=== PATIENT | female | born 1985 | race American Indian/Alaskan Native ===

== ENCOUNTER 2017-01-13 01:09 | Inpatient (IN) | payer MEDICAID ==
[2017-01-13] MEDS ORDERED: POLYCILLIN/NS 2 GM/100 ML 2 GM/100 ML BAG IV ONE (01:41)
[2017-01-13] MEDS ORDERED: BRETHINE SUB-Q PRN (01:51)
[2017-01-13] MEDS ORDERED: ZOFRAN IV PRN (01:51)
[2017-01-13] MEDS ORDERED: ePHEDrine SULFATE IV PRN ×2 (01:51→05:51)
[2017-01-13] MEDS ORDERED: XYLOCAINE 2% INFILTRATI ONE (01:51)
[2017-01-13] MEDS ORDERED: MINERAL OIL PO PRN (01:51)
[2017-01-13] MEDS ORDERED: PITOCin/NS 20 UNIT/1000ML DRIP 20 UNITS/1,000 ML BAG IV SCH ×2 (02:00→18:31)
[2017-01-13] MEDS ORDERED: LACTATED RINGERS 1,000 ML IV SCH ×2 (02:00→17:00)
--- NOTE | 2017-01-13 02:00 | History and Physical Report ---
History of Present Illness Date of examination: 01/13/17 (pt presents with SROM) Chief complaint: leaking fluid History of present illness: EDC Confirmation: 01/18/2017 Gestational Age: 8 weeks Past History : 1 Past Medical History: Negative Past Medical History Past Surgical History: Negative Past Surgical History Past Medical History Surgery (Non-steel layer): Negative Past Surgical History Abnormal PAP: negative JENNIFER Exposure: negative Infertility: negative Uterine Anomaly: negative Uterine Surgery (not C/S): negative Other Gynecologic Problems: negative Medical History Comments: neg Family Hx: neg Social Hx: no e/t/d student-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 of genital herpes: no Rash, Viral, or Febrile illness since last LMP? no Varicella/Chicken Pox Status: Immunized Genetic History Congenital Heart Defect: Mom: no Alvaro Disease: Mom: no Thalassemia Mom: no Neural Tube Defect Mom: no Down's Syndrome Mom: no Jabier-Sachs Mom: no Sickle Cell Disease/Trait Mom: no Hemophilia Mom: no Muscular Dystrophy Mom: no Cystic Fibrosis Mom: no Yared Chorea Mom: no Mental Retardation Mom: no Fragile X Mom: no Other Genetic/Chromosomal Disorder Mom: no Child w/other defect Mom: no Enviromental Exposures Xray Exposure: no Medication, drug, or alcohol use since LMP: no Chemical/Other Exposure: no Exposure to Cat Liter: no Hx of Parvovirus (Fifth Disease): no Occupational Exposure to Children: none Active Medications (reviewed today): VITAMINS TABS ( VIT-FE FUMARATE-FA TABS) Current Allergies (reviewed today): No known allergies Laboratory Results Date/Time Collected: 06/08/2016 Urine HCG: positive PHYSICAL EXAM HEENT: PERRLA, normal conjunctiva, external nose and nasal mucosa normal, oropharynx clear Neck/Thyroid: supple, thyroid normal Skin no significant abnormal lesions or rashes Chest: respiratory effort normal, clear to auscultation Breasts: normal without skin changes or masses Abdomen: normal bowel sounds, soft, nontender, no HSM Musculoskeletal: grossly normal ROM in joints, no joint tenderness or muscle weakness Neuro: grossly normal DTRs, sensation, strength, cranial nerves Extremities: no clubbing, cyanosis, or edema 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 Vulva/Vagina: No lesions, normal BUS, normal rugae Cervix: No lesions; no cervical motion tenderness Uterus: normal size and position, midline, mobile Fundal Ht: 12 Adnexae: no masses or tenderness Rectovaginal: no masses or tenderness Flowsheet View for Follow-up Visit Past History - Obstetrical History Expected Date of Delivery: 01/18/17 Actual Gestation: 39 Week(s) 2 Day(s) : 1 Para: 0 Hx # Term Pregnancies: 0 Number of Pregnancies: 0 Spontaneous Abortions: 0 Induced : 0 Number of Living Children: 0 Medications and Allergies Allergies Allergy/AdvReac Type Severity Reaction Status Date / Time No Known Allergies Allergy Unverified 01/13/17 01:11 Home Medications Medication Instructions Recorded Confirmed Last Taken Type Vit No.130/Iron/Folic 1 each PO QDAY 01/13/17 01/13/17 01/12/17 History [ Tablet] Active Meds: Active Medications Ephedrine Sulfate (Ephedrine Sulfate) 10 mg IV Q2M PRN PRN Reason: Hypotension Fentanyl (Sublimaze) 100 mcg IV Q2H PRN PRN Reason: Labor Pain Ampicillin Sodium (Polycillin/Ns 2 Gm/100 Ml) 2 gm in 100 mls @ 100 mls/hr IV ONCE ONE PRN Reason: Protocol Stop: 01/13/17 02:40 Lactated Ringer's (Lactated Ringers) 1,000 mls @ 125 mls/hr IV DIRECT HARPAL Ampicillin Sodium (Polycillin/Ns 1 Gm/50 Ml) 1 gm in 50 mls @ 100 mls/hr IV Q4HR HARPAL PRN Reason: Protocol Lactated Ringer's (Lactated Ringers) 1,000 mls @ 125 mls/hr IV DIRECT HARPAL Oxytocin/Sodium Chloride (Pitocin/Ns 20 Unit/1000ml Drip) 20 units in 1,000 mls @ 125 mls/hr IV DIRECT HARPAL Oxytocin/Sodium Chloride (Pitocin/Ns 30 Unit/500ml) 30 units in 500 mls @ 2 mls /hr IV TITR HARPAL PRN Reason: Protocol Lidocaine (Xylocaine 2%) 20 ml INFILTRATI ONCE ONE Stop: 01/13/17 01:52 Mineral Oil (Mineral Oil) 30 ml PO QHS PRN PRN Reason: Constipation Ondansetron HCl (Zofran) 4 mg IV Q8H PRN PRN Reason: Nausea And Vomiting Terbutaline Sulfate (Brethine) 0.25 mg SUB-Q ONCE PRN PRN Reason: Hyperstimulation/Hypertonicity - Vital Signs Vital signs: Vital Signs Temp Resp 99.0 F 22 01/13/17 01:11 01/13/17 01:11 Temp Pulse Resp BP Pulse Ox 99.0 F 79 22 169/97 98 01/13/17 01:11 01/13/17 01:54 01/13/17 01:11 01/13/17 01:54 01/13/17 01:53 - Physical Exam Breasts: Positive: deferred Cardiovascular: Regular rate, Normal S1, Normal S2 Lungs: Positive: Normal air movement Abdomen: Positive: normal appearance, soft, normal bowel sounds. Negative: distention, tenderness Genitourinary (Female): Positive: normal perenium Vulva: both: normal Vagina: Positive: normal moisture. Negative: discharge Cervix: Negative: lesion, discharge Uterus: Positive: normal size, normal contour Adnexa: both: normal Anus/Rectum: Positive: normal perianal skin, heme negative. 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 Strep Gp B YUSEF [A] Positive HBsAg Screen Negative Negative *1 Rubella Antibodies, IgG 27.20 index Immune >0.99 *2 Non-immune <0.90 Equivocal 0.90 - 0.99 Immune >0.99 ABO Grouping B *3 Rh Factor Positive *4 Please note: Prior records for this patient's ABO / Rh type are not available for additional verification. Antibody Screen Negative Negative *5 RPR Non Reactive Non Reactive *6 WBC 9.8 x10E3/uL 3.4-10.8 *7 RBC 4.16 x10E6/uL 3.77-5.28 *8 Hemoglobin 12.1 g/dL 11.1-15.9 *9 Hematocrit 36.8 % 34.0-46.6 *10 MCV 89 fL 79-97 *11 MCH 29.1 pg 26.6-33.0 *12 MCHC 32.9 g/dL 31.5-35.7 *13 RDW 13.4 % 12.3-15.4 *14 Platelets 288 x10E3/uL 150-379 *15 Neutrophils 76 % *16 Lymphs 16 % *17 Monocytes 7 % *18 Eos 1 % *19 Basos 0 % *20 ! Immature Cells <No Reported Value> *21 Neutrophils (Absolute) [H] 7.5 x10E3/uL 1.4-7.0 *22 Lymphs (Absolute) 1.5 x10E3/uL 0.7-3.1 *23 Monocytes(Absolute) 0.7 x10E3/uL 0.1-0.9 *24 Eos (Absolute) 0.1 x10E3/uL 0.0-0.4 *25 Baso (Absolute) 0.0 x10E3/uL 0.0-0.2 *26 ! Immature Granulocytes 0 % *27 ! Immature Grans (Abs) 0.0 x10E3/uL 0.0-0.1 *28 ! NRBC <No Reported Value> *29 Hematology Comments: <No Reported Value> *30 Tests: (2) Cystic Fibrosis Profile (241467) ! CF, Screen Comment: *31 RESULTS: Negative for 32 mutations analyzed Tests: (3) HB Solu + Rflx Frac (222844) Hemoglobin (Hgb) Solubility [A] Positive Negative *33 Verified by repeat analysis Tests: (4) Hemoglobin Frac.w/o Solubility (387208) ! Hgb F 0.0 % 0.0-2.0 *34 ! Hgb A [L] 56.6 % 94.0-98.0 *35 ! Hgb S [H] 39.1 % 0.0 *36 ! Hgb C 0.0 % 0.0 *37 ! Hgb A2 [H] 4.3 % 0.7-3.1 *38 ! Hgb Variant <No Reported Value> *39 ! Interpretation HGAS1 *40 Hemoglobin pattern and concentration are consistent with sickle cell trait (heterozygous). Suggest clinical and hematologic correlation. Sickle Trait Interpretation Ranges Hgb A 50.0 - 70.0% Hgb S 30.0 - 45.0% Hgb A2 3.0 - 5.0%* *Hgb A2 values are seen to be increased over normal levels. This increase is typically due to interference from co-eluting Hgb S-subunits with the HPLC method and therefore the Hgb A2 interpretation ranges have been adjusted. Tests: (5) Panel 973010 ([id number]) HIV Screen 4th Generation wRfx Non Reactive Non Reactive *41 Tests: (6) HCV Ab w/Rflx to Verification (351604) ! HCV Ab <0.1 s/co ratio 0.0-0.9 *42 Tests: (7) Comment: (491040) ! Comment: SPRCS *43 Non reactive HCV antibody screen is consistent with no HCV infection, unless recent infection is suspected or other evidence exists to indicate HCV infection. Assessment and Plan 31yo @ 39 with with SROM GBS+ All orders in EMR Re-eval as indicated. - Patient Problems (1) Group B Streptococcus carrier state affecting Current Visit: Yes Status: Acute Plan to address problem: Ampicillin ordered per protocol (2) Spontaneous rupture of membranes Current Visit: Yes Status: Acute Plan to address problem: Clear fluid reported by pt and RN. Augmentation of labor with pitocin
[2017-01-13 02:15] LABS: Hematocrit 35.8 % (30.3-42.9); Hemoglobin 12.2 gm/dl (10.1-14.3); Mean Corpuscular HGB Conc 34 % (30-34); Mean Corpuscular Hemoglobin 30 pg (28-32); Mean Corpuscular Volume 89 fl (79-97); Platelet Count 222 K/mm3 (140-440); Red Blood Count 4.04 M/mm3 (3.65-5.03); Red Cell Distribution Width 14.3 % (13.2-15.2); White Blood Count 12.4 K/mm3 (4.5-11.0)
[2017-01-13] MEDS: LACTATED RINGERS 1,000 ML IV SCH ×3 (02:33→07:35)
[2017-01-13] MEDS: SUBLIMAZE IV PRN ×2 (02:36→04:49)
[2017-01-13 02:41] LABS: Alanine Aminotransferase 9 units/L (7-56)
[2017-01-13 02:59] LABS: Lactate Dehydrogenase 261 units/L (91-180); Uric Acid 5.8 mg/dL (3.5-7.6)
[2017-01-13] MEDS ORDERED: APRESOLINE IV ONE (03:41)
[2017-01-13 03:42] LABS: Bilirubin,Urine NEG (Negative); Blood,Urine NEG (Negative); Ketones,Urine NEG (Negative); Leukocyte Esterase,Urine NEG (Negative); Mucus,Urine FEW /HPF; Nitrite,Urine NEG (Negative); Protein,Urine <15 mg/dL mg/dL (Negative); Urobilinogen,Urine < 2.0 mg/dL (<2.0); WBC,Urine < 1.0 /HPF (0.0-6.0)
[2017-01-13] MEDS: PITOCin/NS 30 UNIT/500ML 30 UNITS/500 ML BAG IV SCH ×9 (04:00→11:57)
[2017-01-13] MEDS ORDERED: NARCAN 2 MG/2 ML IV PRN (05:51)
--- NOTE | 2017-01-13 05:51 | Anesthesia Consultation ---
Anesthesia Consult and Med Hx Date of service: 01/13/17 - Airway Anesthetic Teeth Evaluation: Good ROM Head & Neck: Adequate Mental/Hyoid Distance: Adequate Mallampati Class: Class II Intubation Access Assessment: Probably Good - Pulmonary Exam CTA: Yes - Cardiac Exam Cardiac Exam: RRR - Pre-Operative Health Status ASA Pre-Surgery Classification: ASA2 Proposed Anesthetic Plan: Epidural - Pulmonary Hx Asthma: No COPD: No Hx Pneumonia: No - Cardiovascular System Hx Hypertension: No - Central Nervous System Hx Seizures: No Hx Psychiatric Problems: No - Endocrine Hx Renal Disease: No Hx End Stage Renal Disease: No Hx Hypothyroidism: No Hx Hyperthyroidism: No - Hematic Hx Anemia: No Hx Sickle Cell Disease: Yes (trait) - Other Systems Hx Alcohol Use: No
[2017-01-13] MEDS ORDERED: fentaNYL-BUPIV 2 MCG/ML-0.125% 200 MCG/100 ML BAG EPIDURAL SCH (06:00)
--- NOTE | 2017-01-13 06:02 | Progress Note ---
Assessment and Plan - Patient Problems (1) Group B Streptococcus carrier state affecting Current Visit: Yes Status: Acute Plan to address problem: Second dose Ampicillin due @ 0600 (2) Spontaneous rupture of membranes Onset Date: ~01/13/17 Current Visit: Yes Status: Acute Plan to address problem: Pt comfortable with epidural SVE 3-4,70,-1 ISE/IUPC placed Light meconium stained fluid noted. Pitocin per protocol. Re-eval as needed. 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 of genital herpes: no Rash, Viral, or Febrile illness since last LMP? no Varicella/Chicken Pox Status: Immunized Genetic History Congenital Heart Defect: Mom: no Alvaro Disease: Mom: no Thalassemia Mom: no Neural Tube Defect Mom: no Down's Syndrome Mom: no Jabier-Sachs Mom: no Sickle Cell Disease/Trait Mom: no Hemophilia Mom: no Muscular Dystrophy Mom: no Cystic Fibrosis Mom: no [place] Chorea Mom: no Mental Retardation Mom: no Fragile X Mom: no Other Genetic/Chromosomal Disorder Mom: no Child w/other defect Mom: no Enviromental Exposures Xray Exposure: no Medication, drug, or alcohol use since LMP: no Chemical/Other Exposure: no Exposure to Cat Liter: no Hx of Parvovirus (Fifth Disease): no Occupational Exposure to Children: none Active Medications (reviewed today): VITAMINS TABS ( VIT-FE FUMARATE-FA TABS) Current Allergies (reviewed today): No known allergies Laboratory Results Date/Time Collected: 06/08/2016 Urine HCG: positive PHYSICAL EXAM HEENT: PERRLA, normal conjunctiva, external nose and nasal mucosa normal, oropharynx clear Neck/Thyroid: supple, thyroid normal Skin no significant abnormal lesions or rashes Chest: respiratory effort normal, clear to auscultation Breasts: normal without skin changes or masses Abdomen: normal bowel sounds, soft, nontender, no HSM Musculoskeletal: grossly normal ROM in joints, no joint tenderness or muscle weakness Neuro: grossly normal DTRs, sensation, strength, cranial nerves Extremities: no clubbing, cyanosis, or edema 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 Vulva/Vagina: No lesions, normal BUS, normal rugae Cervix: No lesions; no cervical motion tenderness Uterus: normal size and position, midline, mobile Fundal Ht: 12 Adnexae: no masses or tenderness Rectovaginal: no masses or tenderness Flowsheet View for Follow-up Visit Patient reports: movement normal Objective - Vital Signs Vital Signs: Vital Signs - 12hr 01/13/17 01/13/17 01/13/17 01:11 01:18 01:22 Temperature 99.0 F Pulse Rate 83 78 Respiratory 22 Rate Blood Pressure 146/96 Blood Pressure [Left] O2 Sat by Pulse 98 Oximetry 01/13/17 01/13/17 01/13/17 01:23 01:28 01:33 Temperature Pulse Rate 81 74 80 Respiratory Rate Blood Pressure Blood Pressure [Left] O2 Sat by Pulse 98 99 98 Oximetry 01/13/17 01/13/17 01/13/17 01:38 01:43 01:48 Temperature Pulse Rate 71 91 H 94 H Respiratory Rate Blood Pressure 139/81 Blood Pressure [Left] O2 Sat by Pulse 97 97 97 Oximetry 01/13/17 01/13/17 01/13/17 01:53 01:54 02:21 Temperature Pulse Rate 82 79 85 Respiratory 16 Rate Blood Pressure 169/97 146/81 Blood Pressure 146/81 [Left] O2 Sat by Pulse 98 Oximetry 01/13/17 01/13/17 01/13/17 02:39 03:07 03:24 Temperature 98.9 F Pulse Rate 74 78 Respiratory Rate Blood Pressure 140/82 167/89 Blood Pressure [Left] O2 Sat by Pulse Oximetry 01/13/17 01/13/17 01/13/17 03:38 03:40 03:46 Temperature Pulse Rate 86 89 90 Respiratory Rate Blood Pressure 187/89 162/77 141/74 Blood Pressure [Left] O2 Sat by Pulse Oximetry 12/03/0101/13/17 01/13/17 03:47 03:51 03:56 Temperature Pulse Rate 85 85 96 H Respiratory Rate Blood Pressure 156/86 155/80 140/69 Blood Pressure [Left] O2 Sat by Pulse Oximetry 01/13/17 01/13/17 01/13/17 04:08 04:12 04:17 Temperature Pulse Rate 85 107 H 103 H Respiratory Rate Blood Pressure 155/80 131/74 130/76 Blood Pressure [Left] O2 Sat by Pulse Oximetry 01/13/17 01/13/17 01/13/17 04:22 04:29 04:34 Temperature Pulse Rate 105 H 105 H 105 H Respiratory Rate Blood Pressure 123/72 129/73 129/77 Blood Pressure [Left] O2 Sat by Pulse Oximetry 01/13/17 01/13/17 01/13/17 04:38 04:43 04:48 Temperature Pulse Rate 90 98 H 103 H Respiratory Rate Blood Pressure 136/79 155/84 130/74 Blood Pressure [Left] O2 Sat by Pulse Oximetry 01/13/17 01/13/17 01/13/17 04:53 04:58 05:02 Temperature Pulse Rate 110 H 96 H 96 H Respiratory Rate Blood Pressure 133/76 130/61 125/58 Blood Pressure [Left] O2 Sat by Pulse Oximetry 01/13/17 01/13/17 01/13/17 05:08 05:12 05:18 Temperature Pulse Rate 100 H 95 H 87 Respiratory Rate Blood Pressure 132/70 130/69 134/74 Blood Pressure [Left] O2 Sat by Pulse Oximetry 01/13/17 01/13/17 01/13/17 05:25 05:33 05:36 Temperature Pulse Rate 109 H 110 H 127 H Respiratory Rate Blood Pressure 126/68 174/76 161/78 Blood Pressure [Left] O2 Sat by Pulse Oximetry 01/13/17 01/13/17 01/13/17 05:37 05:38 05:40 Temperature Pulse Rate 103 H 109 H 115 H Respiratory Rate Blood Pressure 172/77 158/76 Blood Pressure [Left] O2 Sat by Pulse 99 Oximetry 01/13/17 01/13/17 01/13/17 05:42 05:44 05:46 Temperature Pulse Rate 110 H 107 H 100 H Respiratory Rate Blood Pressure 158/60 145/70 154/94 Blood Pressure [Left] O2 Sat by Pulse 100 Oximetry 01/13/17 01/13/17 01/13/17 05:47 05:50 05:52 Temperature Pulse Rate 102 H 94 H 94 H Respiratory Rate Blood Pressure 137/70 134/71 Blood Pressure [Left] O2 Sat by Pulse 97 99 Oximetry 01/13/17 01/13/17 01/13/17 05:54 05:56 05:57 Temperature Pulse Rate 93 H 83 94 H Respiratory Rate Blood Pressure 131/67 131/62 Blood Pressure [Left] O2 Sat by Pulse 100 Oximetry 01/13/17 01/13/17 01/13/17 05:58 06:00 06:02 Temperature Pulse Rate 98 H 87 113 H Respiratory Rate Blood Pressure 139/72 137/70 153/68 Blood Pressure [Left] O2 Sat by Pulse 99 Oximetry 01/13/17 06:04 Temperature Pulse Rate 93 H Respiratory Rate Blood Pressure 144/66 Blood Pressure [Left] O2 Sat by Pulse Oximetry - Exam Breasts: deferred Cardiovascular: Regular rate Lungs: Normal air movement Abdomen: Present: normal appearance, soft. Absent: distention, tenderness Uterus: Present: normal FHR: auscultation normal, category 1 Uterine Contraction Monitor Mode: Internal Cervical Dilatation: 3.5 (ISE/IUPC placed) Cervical Effacement Percentage: 70 (meconium noted light) station: -1 Uterine Contraction Pattern: Regular Uterine Tone Measurement Phase: Resting Uterine Contraction Intensity: Moderate Extremities: edema Deep Tendon Reflex Grade: Normal +2 - Labs Labs: Abnormal Labs 01/13/17 01/13/17 01/13/17 01:50 01:50 03:23 WBC 12.4 H Lactate Dehydrogenase 261 H Ur Specific [place] 1.002 L Laboratory Results - last 24 hr 01/13/17 01/13/17 01/13/17 01:50 01:50 01:50 WBC 12.4 H RBC 4.04 Hgb 12.2 Hct 35.8 MCV 89 MCH 30 MCHC 34 RDW 14.3 Plt Count 222 Creatinine 0.7 Estimated GFR > 60 Uric Acid 5.8 AST 18 ALT 9 Lactate Dehydrogenase 261 H Urine Color Urine Turbidity Urine pH Ur Specific [place] Urine Protein Urine Glucose (UA) Urine Ketones Urine Blood Urine Nitrite Urine Bilirubin Urine Urobilinogen Ur Leukocyte Esterase Urine WBC (Auto) Urine RBC (Auto) U Epithel Cells (Auto) Urine Mucus Blood Type B POSITIVE Antibody Screen Negative 01/13/17 03:23 WBC RBC Hgb Hct MCV MCH MCHC RDW Plt Count Creatinine Estimated GFR Uric Acid AST ALT Lactate Dehydrogenase Urine Color Straw Urine Turbidity Clear Urine pH 6.0 Ur Specific [place] 1.002 L Urine Protein <15 mg/dl Urine Glucose (UA) Neg Urine Ketones Neg Urine Blood Neg Urine Nitrite Neg Urine Bilirubin Neg Urine Urobilinogen < 2.0 Ur Leukocyte Esterase Neg Urine WBC (Auto) < 1.0 Urine RBC (Auto) 2.0 U Epithel Cells (Auto) < 1.0 Urine Mucus Few Blood Type Antibody Screen
[2017-01-13] MEDS: POLYCILLIN/NS 1 GM/50 ML 1 GM/50 ML BAG IV SCH ×2 (06:12→10:00)
--- NOTE | 2017-01-13 07:51 | Progress Note ---
Assessment and Plan SVE with minimal change from previous exam. IUPC and ISE working well, pitocin @ 6mU. Light mec noted. FHT cat 2 ( variables, good variablity), repositioned to left side. Will continue to monitor. Dr. Johnson aware. - Patient Problems (1) 39 weeks gestation of Current Visit: Yes Status: Acute (2) Group B Streptococcus carrier state affecting Current Visit: Yes Status: Acute Plan to address problem: third dose of Ampicillin due at 10am (3) Spontaneous rupture of membranes Onset Date: ~01/13/17 Current Visit: Yes Status: Acute Subjective - Subjective Date of service: 01/13/17 Principal diagnosis: IUP @ 39w2d SROM / AFP + for DS Patient reports: movement normal, no new complaints (comfortable with epidural) Objective - Vital Signs Vital Signs: Vital Signs - 12hr 01/13/17 01/13/17 01/13/17 01:11 01:18 01:22 Temperature 99.0 F Pulse Rate 83 78 Respiratory 22 Rate Blood Pressure 146/96 Blood Pressure [Left] O2 Sat by Pulse 98 Oximetry 01/13/17 01/13/17 01/13/17 01:23 01:28 01:33 Temperature Pulse Rate 81 74 80 Respiratory Rate Blood Pressure Blood Pressure [Left] O2 Sat by Pulse 98 99 98 Oximetry 01/13/17 01/13/17 01/13/17 01:38 01:43 01:48 Temperature Pulse Rate 71 91 H 94 H Respiratory Rate Blood Pressure 139/81 Blood Pressure [Left] O2 Sat by Pulse 97 97 97 Oximetry 01/13/17 01/13/17 01/13/17 01:53 01:54 02:21 Temperature Pulse Rate 82 79 85 Respiratory 16 Rate Blood Pressure 169/97 146/81 Blood Pressure 146/81 [Left] O2 Sat by Pulse 98 Oximetry 01/13/17 01/13/17 01/13/17 02:39 03:07 03:24 Temperature 98.9 F Pulse Rate 74 78 Respiratory Rate Blood Pressure 140/82 167/89 Blood Pressure [Left] O2 Sat by Pulse Oximetry 01/13/17 01/13/17 01/13/17 03:38 03:40 03:46 Temperature Pulse Rate 86 89 90 Respiratory Rate Blood Pressure 187/89 162/77 141/74 Blood Pressure [Left] O2 Sat by Pulse Oximetry 01/13/17 01/13/17 01/13/17 03:47 03:51 03:56 Temperature Pulse Rate 85 85 96 H Respiratory Rate Blood Pressure 156/86 155/80 140/69 Blood Pressure [Left] O2 Sat by Pulse Oximetry 01/13/17 01/13/17 01/13/17 04:08 04:12 04:17 Temperature Pulse Rate 85 107 H 103 H Respiratory Rate Blood Pressure 155/80 131/74 130/76 Blood Pressure [Left] O2 Sat by Pulse Oximetry 01/13/17 01/13/17 01/13/17 04:22 04:29 04:34 Temperature Pulse Rate 105 H 105 H 105 H Respiratory Rate Blood Pressure 123/72 129/73 129/77 Blood Pressure [Left] O2 Sat by Pulse Oximetry 01/13/17 01/13/17 01/13/17 04:38 04:43 04:48 Temperature Pulse Rate 90 98 H 103 H Respiratory Rate Blood Pressure 136/79 155/84 130/74 Blood Pressure [Left] O2 Sat by Pulse Oximetry 01/13/17 01/13/17 01/13/17 04:53 04:58 05:02 Temperature Pulse Rate 110 H 96 H 96 H Respiratory Rate Blood Pressure 133/76 130/61 125/58 Blood Pressure [Left] O2 Sat by Pulse Oximetry 01/13/17 01/13/17 01/13/17 05:08 05:12 05:18 Temperature Pulse Rate 100 H 95 H 87 Respiratory Rate Blood Pressure 132/70 130/69 134/74 Blood Pressure [Left] O2 Sat by Pulse Oximetry 01/13/17 01/13/17 01/13/17 05:25 05:33 05:36 Temperature Pulse Rate 109 H 110 H 127 H Respiratory Rate Blood Pressure 126/68 174/76 161/78 Blood Pressure [Left] O2 Sat by Pulse Oximetry 01/13/17 01/13/17 01/13/17 05:37 05:38 05:40 Temperature Pulse Rate 103 H 109 H 115 H Respiratory Rate Blood Pressure 172/77 158/76 Blood Pressure [Left] O2 Sat by Pulse 99 Oximetry 01/13/17 01/13/17 01/13/17 05:42 05:44 05:46 Temperature Pulse Rate 110 H 107 H 100 H Respiratory Rate Blood Pressure 158/60 145/70 154/94 Blood Pressure [Left] O2 Sat by Pulse 100 Oximetry 01/13/17 01/13/17 01/13/17 05:47 05:50 05:52 Temperature Pulse Rate 102 H 94 H 94 H Respiratory Rate Blood Pressure 137/70 134/71 Blood Pressure [Left] O2 Sat by Pulse 97 99 Oximetry 01/13/17 01/13/17 01/13/17 05:54 05:56 05:57 Temperature Pulse Rate 93 H 83 94 H Respiratory Rate Blood Pressure 131/67 131/62 Blood Pressure [Left] O2 Sat by Pulse 100 Oximetry 01/13/17 01/13/17 01/13/17 05:58 06:00 06:02 Temperature Pulse Rate 98 H 87 113 H Respiratory Rate Blood Pressure 139/72 137/70 153/68 Blood Pressure [Left] O2 Sat by Pulse 99 Oximetry 01/13/17 01/13/17 01/13/17 06:04 06:06 06:07 Temperature Pulse Rate 93 H 91 H 113 H Respiratory Rate Blood Pressure 144/66 140/65 Blood Pressure [Left] O2 Sat by Pulse 99 Oximetry 01/13/17 01/13/17 01/13/17 06:08 06:10 06:12 Temperature Pulse Rate 100 H 106 H 106 H Respiratory Rate Blood Pressure 154/76 152/71 Blood Pressure [Left] O2 Sat by Pulse 98 Oximetry 01/13/17 01/13/17 01/13/17 06:14 06:16 06:17 Temperature Pulse Rate 88 96 H 105 H Respiratory Rate Blood Pressure 130/76 142/65 Blood Pressure [Left] O2 Sat by Pulse 99 Oximetry 01/13/17 01/13/17 01/13/17 06:18 06:20 06:22 Temperature Pulse Rate 99 H 98 H 88 Respiratory Rate Blood Pressure 145/68 133/63 132/86 Blood Pressure [Left] O2 Sat by Pulse 100 Oximetry 01/13/17 01/13/17 01/13/17 06:24 06:26 06:27 Temperature Pulse Rate 105 H 106 H 95 H Respiratory Rate Blood Pressure 136/78 119/72 Blood Pressure [Left] O2 Sat by Pulse 100 Oximetry 01/13/17 01/13/17 01/13/17 06:28 06:30 06:32 Temperature Pulse Rate 95 H 87 94 H Respiratory Rate Blood Pressure 146/78 139/72 139/83 Blood Pressure [Left] O2 Sat by Pulse 75 L Oximetry 01/13/17 01/13/17 01/13/17 06:34 06:36 06:37 Temperature Pulse Rate 91 H 96 H 91 H Respiratory Rate Blood Pressure 135/72 134/60 Blood Pressure [Left] O2 Sat by Pulse 100 Oximetry 01/13/17 01/13/17 01/13/17 06:38 06:40 06:42 Temperature Pulse Rate 87 84 82 Respiratory Rate Blood Pressure 128/62 150/81 123/61 Blood Pressure [Left] O2 Sat by Pulse 100 Oximetry 01/13/17 01/13/17 01/13/17 06:44 06:46 06:47 Temperature Pulse Rate 82 83 81 Respiratory Rate Blood Pressure 120/61 124/64 Blood Pressure [Left] O2 Sat by Pulse 100 Oximetry 01/13/17 01/13/17 01/13/17 06:48 06:50 06:52 Temperature Pulse Rate 88 83 80 Respiratory Rate Blood Pressure 122/63 113/58 119/62 Blood Pressure [Left] O2 Sat by Pulse 100 Oximetry 01/13/17 01/13/17 01/13/17 06:54 06:56 06:57 Temperature Pulse Rate 81 85 87 Respiratory Rate Blood Pressure 114/58 112/58 Blood Pressure [Left] O2 Sat by Pulse 100 Oximetry 01/13/17 01/13/17 01/13/17 06:58 07:00 07:02 Temperature Pulse Rate 88 93 H 87 Respiratory Rate Blood Pressure 113/61 120/64 138/82 Blood Pressure [Left] O2 Sat by Pulse 100 Oximetry 01/13/17 01/13/17 01/13/17 07:04 07:06 07:07 Temperature Pulse Rate 72 67 66 Respiratory Rate Blood Pressure 113/59 105/55 Blood Pressure [Left] O2 Sat by Pulse 100 Oximetry 01/13/17 01/13/17 01/13/17 07:08 07:10 07:12 Temperature Pulse Rate 76 73 74 Respiratory Rate Blood Pressure 103/54 100/53 106/53 Blood Pressure [Left] O2 Sat by Pulse 98 Oximetry 01/13/17 01/13/17 01/13/17 07:14 07:16 07:17 Temperature 98.4 F Pulse Rate 76 81 73 Respiratory 16 Rate Blood Pressure 105/53 97/53 Blood Pressure [Left] O2 Sat by Pulse 99 Oximetry 01/13/17 01/13/17 01/13/17 07:18 07:22 07:27 Temperature Pulse Rate 73 79 78 Respiratory Rate Blood Pressure 106/58 Blood Pressure [Left] O2 Sat by Pulse 100 100 Oximetry 01/13/17 01/13/17 01/13/17 07:32 07:36 07:37 Temperature Pulse Rate 68 78 79 Respiratory Rate Blood Pressure 106/57 Blood Pressure [Left] O2 Sat by Pulse 99 100 Oximetry 01/13/17 01/13/17 01/13/17 07:42 07:47 07:50 Temperature Pulse Rate 79 85 74 Respiratory Rate Blood Pressure 120/71 Blood Pressure [Left] O2 Sat by Pulse 100 100 Oximetry - Exam Breasts: normal Cardiovascular: Regular rate Lungs: Clear to auscultation, Normal air movement Abdomen: Present: normal appearance, soft Vulva: both: normal Uterus: Present: normal FHR: category 2 Uterine Contraction Monitor Mode: Internal Cervical Dilatation: 4.5 Cervical Effacement Percentage: 80 station: -1 Uterine Contraction Frequency (min): 3 Uterine Contraction Duration: 60 Uterine Contraction Pattern: Regular Uterine Tone Measurement Phase: Contraction Uterine Contraction Intensity: Moderate Extremities: normal - Labs Labs: Abnormal Labs 01/13/17 01/13/17 01/13/17 01:50 01:50 03:23 WBC 12.4 H Lactate Dehydrogenase 261 H Ur Specific [place] 1.002 L Laboratory Results - last 24 hr 01/13/17 01/13/17 01/13/17 01:50 01:50 01:50 WBC 12.4 H RBC 4.04 Hgb 12.2 Hct 35.8 MCV 89 MCH 30 MCHC 34 RDW 14.3 Plt Count 222 Creatinine 0.7 Estimated GFR > 60 Uric Acid 5.8 AST 18 ALT 9 Lactate Dehydrogenase 261 H Urine Color Urine Turbidity Urine pH Ur Specific [place] Urine Protein Urine Glucose (UA) Urine Ketones Urine Blood Urine Nitrite Urine Bilirubin Urine Urobilinogen Ur Leukocyte Esterase Urine WBC (Auto) Urine RBC (Auto) U Epithel Cells (Auto) Urine Mucus Blood Type B POSITIVE Antibody Screen Negative 01/13/17 03:23 WBC RBC Hgb Hct MCV MCH MCHC RDW Plt Count Creatinine Estimated GFR Uric Acid AST ALT Lactate Dehydrogenase Urine Color Straw Urine Turbidity Clear Urine pH 6.0 Ur Specific [place] 1.002 L Urine Protein <15 mg/dl Urine Glucose (UA) Neg Urine Ketones Neg Urine Blood Neg Urine Nitrite Neg Urine Bilirubin Neg Urine Urobilinogen < 2.0 Ur Leukocyte Esterase Neg Urine WBC (Auto) < 1.0 Urine RBC (Auto) 2.0 U Epithel Cells (Auto) < 1.0 Urine Mucus Few Blood Type Antibody Screen
[2017-01-13] MEDS ORDERED: NACL 0.9% 1000 ML 1,000 ML ONE (08:00)
[2017-01-13] MEDS ORDERED: ANCEF/STERILE WATER 2 GM/20 ML 2 GM/20 ML SYRINGE IV ONE (13:40)
[2017-01-13] MEDS ORDERED: REGLAN ONE (13:41)
[2017-01-13] MEDS ORDERED: BICITRA ONE (13:41)
[2017-01-13] MEDS ORDERED: PEPCID IV ONE (13:41)
--- NOTE | 2017-01-13 14:02 | Progress Note ---
Assessment and Plan - Patient Problems (1) Failure of cervical dilation Current Visit: Yes Status: Acute Plan to address problem: No cervical change for 4 hrs with adequate contractions. Options reviewed, continue WILY vs C/S. Risks with continued WILY explained, ie infection, poor prognosis, deterioration of status vs C/s with risks of bleeding, infection, injury to bowel, bladder, ureters or subsequent c/s with each . She desires to proceed with c/s. Consents reviewed and signed, she voiced understanding and desires to proceed with c/s for failure to dilate. (2) 39 weeks gestation of Current Visit: Yes Status: Acute (3) Group B Streptococcus carrier state affecting Current Visit: Yes Status: Acute (4) Sickle cell trait Current Visit: Yes Status: Acute (5) Spontaneous rupture of membranes Onset Date: ~01/13/17 Current Visit: Yes Status: Acute Subjective - Subjective Date of service: 01/13/17 Principal diagnosis: IUP @ 39w2d SROM / AFP + for DS Interval history: Pt resting in bed, c/o contractions Patient reports: movement normal, contractions, no new complaints ( comfortable with epidural) Objective - Vital Signs Vital Signs: Vital Signs - 12hr 01/13/17 01/13/17 01/13/17 01:54 02:21 02:39 Temperature 98.9 F Pulse Rate 79 85 Respiratory 16 Rate Blood Pressure 169/97 146/81 Blood Pressure 146/81 [Left] O2 Sat by Pulse Oximetry 01/13/17 01/13/17 01/13/17 03:07 03:24 03:38 Temperature Pulse Rate 74 78 86 Respiratory Rate Blood Pressure 140/82 167/89 187/89 Blood Pressure [Left] O2 Sat by Pulse Oximetry 01/13/17 01/13/17 01/13/17 03:40 03:46 03:47 Temperature Pulse Rate 89 90 85 Respiratory Rate Blood Pressure 162/77 141/74 156/86 Blood Pressure [Left] O2 Sat by Pulse Oximetry 01/13/17 01/13/17 01/13/17 03:51 03:56 04:08 Temperature Pulse Rate 85 96 H 85 Respiratory Rate Blood Pressure 155/80 140/69 155/80 Blood Pressure [Left] O2 Sat by Pulse Oximetry 01/13/17 01/13/17 01/13/17 04:12 04:17 04:22 Temperature Pulse Rate 107 H 103 H 105 H Respiratory Rate Blood Pressure 131/74 130/76 123/72 Blood Pressure [Left] O2 Sat by Pulse Oximetry 01/13/17 01/13/17 01/13/17 04:29 04:34 04:38 Temperature Pulse Rate 105 H 105 H 90 Respiratory Rate Blood Pressure 129/73 129/77 136/79 Blood Pressure [Left] O2 Sat by Pulse Oximetry 01/13/17 01/13/17 01/13/17 04:43 04:48 04:53 Temperature Pulse Rate 98 H 103 H 110 H Respiratory Rate Blood Pressure 155/84 130/74 133/76 Blood Pressure [Left] O2 Sat by Pulse Oximetry 01/13/17 01/13/17 01/13/17 04:58 05:02 05:08 Temperature Pulse Rate 96 H 96 H 100 H Respiratory Rate Blood Pressure 130/61 125/58 132/70 Blood Pressure [Left] O2 Sat by Pulse Oximetry 01/13/17 01/13/17 01/13/17 05:12 05:18 05:25 Temperature Pulse Rate 95 H 87 109 H Respiratory Rate Blood Pressure 130/69 134/74 126/68 Blood Pressure [Left] O2 Sat by Pulse Oximetry 01/13/17 01/13/17 01/13/17 05:33 05:36 05:37 Temperature Pulse Rate 110 H 127 H 103 H Respiratory Rate Blood Pressure 174/76 161/78 Blood Pressure [Left] O2 Sat by Pulse 99 Oximetry 01/13/17 01/13/17 01/13/17 05:38 05:40 05:42 Temperature Pulse Rate 109 H 115 H 110 H Respiratory Rate Blood Pressure 172/77 158/76 158/60 Blood Pressure [Left] O2 Sat by Pulse 100 Oximetry 01/13/17 01/13/17 01/13/17 05:44 05:46 05:47 Temperature Pulse Rate 107 H 100 H 102 H Respiratory Rate Blood Pressure 145/70 154/94 Blood Pressure [Left] O2 Sat by Pulse 97 Oximetry 01/13/17 01/13/17 01/13/17 05:50 05:52 05:54 Temperature Pulse Rate 94 H 94 H 93 H Respiratory Rate Blood Pressure 137/70 134/71 131/67 Blood Pressure [Left] O2 Sat by Pulse 99 Oximetry 01/13/17 01/13/17 01/13/17 05:56 05:57 05:58 Temperature Pulse Rate 83 94 H 98 H Respiratory Rate Blood Pressure 131/62 139/72 Blood Pressure [Left] O2 Sat by Pulse 100 Oximetry 01/13/17 01/13/17 01/13/17 06:00 06:02 06:04 Temperature Pulse Rate 87 113 H 93 H Respiratory Rate Blood Pressure 137/70 153/68 144/66 Blood Pressure [Left] O2 Sat by Pulse 99 Oximetry 01/13/17 01/13/17 01/13/17 06:06 06:07 06:08 Temperature Pulse Rate 91 H 113 H 100 H Respiratory Rate Blood Pressure 140/65 154/76 Blood Pressure [Left] O2 Sat by Pulse 99 Oximetry 01/13/17 01/13/17 01/13/17 06:10 06:12 06:14 Temperature Pulse Rate 106 H 106 H 88 Respiratory Rate Blood Pressure 152/71 130/76 Blood Pressure [Left] O2 Sat by Pulse 98 Oximetry 01/13/17 01/13/17 01/13/17 06:16 06:17 06:18 Temperature Pulse Rate 96 H 105 H 99 H Respiratory Rate Blood Pressure 142/65 145/68 Blood Pressure [Left] O2 Sat by Pulse 99 Oximetry 01/13/17 01/13/17 01/13/17 06:20 06:22 06:24 Temperature Pulse Rate 98 H 88 105 H Respiratory Rate Blood Pressure 133/63 132/86 136/78 Blood Pressure [Left] O2 Sat by Pulse 100 Oximetry 01/13/17 01/13/17 01/13/17 06:26 06:27 06:28 Temperature Pulse Rate 106 H 95 H 95 H Respiratory Rate Blood Pressure 119/72 146/78 Blood Pressure [Left] O2 Sat by Pulse 100 Oximetry 01/13/17 01/13/17 01/13/17 06:30 06:32 06:34 Temperature Pulse Rate 87 94 H 91 H Respiratory Rate Blood Pressure 139/72 139/83 135/72 Blood Pressure [Left] O2 Sat by Pulse 75 L Oximetry 01/13/17 01/13/17 01/13/17 06:36 06:37 06:38 Temperature Pulse Rate 96 H 91 H 87 Respiratory Rate Blood Pressure 134/60 128/62 Blood Pressure [Left] O2 Sat by Pulse 100 Oximetry 01/13/17 01/13/17 01/13/17 06:40 06:42 06:44 Temperature Pulse Rate 84 82 82 Respiratory Rate Blood Pressure 150/81 123/61 120/61 Blood Pressure [Left] O2 Sat by Pulse 100 Oximetry 01/13/17 01/13/17 01/13/17 06:46 06:47 06:48 Temperature Pulse Rate 83 81 88 Respiratory Rate Blood Pressure 124/64 122/63 Blood Pressure [Left] O2 Sat by Pulse 100 Oximetry 01/13/17 01/13/17 01/13/17 06:50 06:52 06:54 Temperature Pulse Rate 83 80 81 Respiratory Rate Blood Pressure 113/58 119/62 114/58 Blood Pressure [Left] O2 Sat by Pulse 100 Oximetry 01/13/17 01/13/17 01/13/17 06:56 06:57 06:58 Temperature Pulse Rate 85 87 88 Respiratory Rate Blood Pressure 112/58 113/61 Blood Pressure [Left] O2 Sat by Pulse 100 Oximetry 01/13/17 01/13/17 01/13/17 07:00 07:02 07:04 Temperature Pulse Rate 93 H 87 72 Respiratory Rate Blood Pressure 120/64 138/82 113/59 Blood Pressure [Left] O2 Sat by Pulse 100 Oximetry 01/13/17 01/13/17 01/13/17 07:06 07:07 07:08 Temperature Pulse Rate 67 66 76 Respiratory Rate Blood Pressure 105/55 103/54 Blood Pressure [Left] O2 Sat by Pulse 100 Oximetry 01/13/17 01/13/17 01/13/17 07:10 07:12 07:14 Temperature 98.4 F Pulse Rate 73 74 76 Respiratory 16 Rate Blood Pressure 100/53 106/53 105/53 Blood Pressure [Left] O2 Sat by Pulse 98 Oximetry 01/13/17 01/13/17 01/13/17 07:16 07:17 07:18 Temperature Pulse Rate 81 73 73 Respiratory Rate Blood Pressure 97/53 106/58 Blood Pressure [Left] O2 Sat by Pulse 99 Oximetry 01/13/17 01/13/17 01/13/17 07:22 07:27 07:32 Temperature Pulse Rate 79 78 68 Respiratory Rate Blood Pressure Blood Pressure [Left] O2 Sat by Pulse 100 100 99 Oximetry 01/13/17 01/13/17 01/13/17 07:36 07:37 07:42 Temperature Pulse Rate 78 79 79 Respiratory Rate Blood Pressure 106/57 Blood Pressure [Left] O2 Sat by Pulse 100 100 Oximetry 01/13/17 01/13/17 01/13/17 07:47 07:50 07:52 Temperature Pulse Rate 85 74 76 Respiratory Rate Blood Pressure 120/71 Blood Pressure [Left] O2 Sat by Pulse 100 100 Oximetry 01/13/17 01/13/17 01/13/17 07:57 08:02 08:05 Temperature Pulse Rate 78 81 60 Respiratory Rate Blood Pressure 128/71 Blood Pressure [Left] O2 Sat by Pulse 98 100 Oximetry 01/13/17 01/13/17 01/13/17 08:07 08:12 08:17 Temperature Pulse Rate 69 69 62 Respiratory Rate Blood Pressure Blood Pressure [Left] O2 Sat by Pulse 100 100 100 Oximetry 01/13/17 01/13/17 01/13/17 08:20 08:22 08:27 Temperature Pulse Rate 67 66 66 Respiratory Rate Blood Pressure 133/67 Blood Pressure [Left] O2 Sat by Pulse 100 100 Oximetry 01/13/17 01/13/17 01/13/17 08:32 08:34 08:36 Temperature Pulse Rate 68 59 L 74 Respiratory Rate Blood Pressure 125/70 Blood Pressure [Left] O2 Sat by Pulse 100 74 L Oximetry 01/13/17 01/13/17 01/13/17 08:37 08:40 08:42 Temperature 98.0 F Pulse Rate 63 76 Respiratory 18 Rate Blood Pressure Blood Pressure [Left] O2 Sat by Pulse 100 99 Oximetry 01/13/17 01/13/17 01/13/17 08:47 08:49 08:52 Temperature Pulse Rate 114 H 88 87 Respiratory Rate Blood Pressure 132/78 Blood Pressure [Left] O2 Sat by Pulse 98 98 Oximetry 01/13/17 01/13/17 01/13/17 08:57 09:02 09:05 Temperature Pulse Rate 68 74 76 Respiratory Rate Blood Pressure 118/66 Blood Pressure [Left] O2 Sat by Pulse 98 98 Oximetry 01/13/17 01/13/17 01/13/17 09:07 09:12 09:17 Temperature Pulse Rate 75 69 71 Respiratory Rate Blood Pressure Blood Pressure [Left] O2 Sat by Pulse 97 98 97 Oximetry 01/13/17 01/13/17 01/13/17 09:19 09:22 09:27 Temperature Pulse Rate 65 83 78 Respiratory Rate Blood Pressure 108/63 Blood Pressure [Left] O2 Sat by Pulse 99 98 Oximetry 01/13/17 01/13/17 01/13/17 09:30 09:32 09:36 Temperature Pulse Rate 74 71 64 Respiratory Rate Blood Pressure 119/67 Blood Pressure [Left] O2 Sat by Pulse 92 97 Oximetry 01/13/17 01/13/17 01/13/17 09:37 09:42 09:47 Temperature Pulse Rate 71 70 88 Respiratory Rate Blood Pressure Blood Pressure [Left] O2 Sat by Pulse 97 98 96 Oximetry 01/13/17 01/13/17 01/13/17 09:49 09:50 09:52 Temperature Pulse Rate 73 80 78 Respiratory Rate Blood Pressure 116/71 Blood Pressure [Left] O2 Sat by Pulse 92 98 Oximetry 01/13/17 01/13/17 01/13/17 09:57 10:00 10:03 Temperature Pulse Rate 69 50 L 88 Respiratory Rate Blood Pressure Blood Pressure [Left] O2 Sat by Pulse 98 55 L 100 Oximetry 01/13/17 01/13/17 01/13/17 10:04 10:08 10:13 Temperature Pulse Rate 86 72 95 H Respiratory Rate Blood Pressure 129/79 Blood Pressure [Left] O2 Sat by Pulse 100 100 Oximetry 01/13/17 01/13/17 01/13/17 10:18 10:20 10:23 Temperature Pulse Rate 85 79 91 H Respiratory Rate Blood Pressure 129/74 Blood Pressure [Left] O2 Sat by Pulse 100 100 Oximetry 01/13/17 01/13/17 01/13/17 10:24 10:28 10:33 Temperature Pulse Rate 86 60 58 L Respiratory Rate Blood Pressure Blood Pressure [Left] O2 Sat by Pulse 90 100 100 Oximetry 01/13/17 01/13/17 01/13/17 10:34 10:38 10:43 Temperature Pulse Rate 61 62 68 Respiratory Rate Blood Pressure 118/66 Blood Pressure [Left] O2 Sat by Pulse 100 100 Oximetry 01/13/17 01/13/17 01/13/17 10:48 10:49 10:53 Temperature 98.8 F Pulse Rate 70 68 67 Respiratory 18 Rate Blood Pressure 114/62 Blood Pressure [Left] O2 Sat by Pulse 100 100 Oximetry 01/13/17 01/13/17 01/13/17 10:58 11:03 11:05 Temperature Pulse Rate 63 72 66 Respiratory Rate Blood Pressure 124/60 Blood Pressure [Left] O2 Sat by Pulse 100 100 Oximetry 01/13/17 01/13/17 01/13/17 11:08 11:13 11:18 Temperature Pulse Rate 70 78 71 Respiratory Rate Blood Pressure Blood Pressure [Left] O2 Sat by Pulse 100 100 100 Oximetry 01/13/17 01/13/17 01/13/17 11:19 11:23 11:28 Temperature Pulse Rate 72 73 72 Respiratory Rate Blood Pressure 115/58 Blood Pressure [Left] O2 Sat by Pulse 100 100 Oximetry 01/13/17 01/13/17 01/13/17 11:33 11:34 11:38 Temperature Pulse Rate 68 71 71 Respiratory Rate Blood Pressure 110/58 Blood Pressure [Left] O2 Sat by Pulse 100 100 Oximetry 01/13/17 01/13/17 01/13/17 11:43 11:48 11:50 Temperature Pulse Rate 69 71 69 Respiratory Rate Blood Pressure 119/67 Blood Pressure [Left] O2 Sat by Pulse 100 100 Oximetry 01/13/17 01/13/17 01/13/17 11:53 11:58 12:00 Temperature 99.0 F Pulse Rate 86 85 Respiratory 18 Rate Blood Pressure Blood Pressure [Left] O2 Sat by Pulse 99 100 Oximetry 01/13/17 01/13/17 01/13/17 12:03 12:06 12:08 Temperature Pulse Rate 94 H 93 H 82 Respiratory Rate Blood Pressure 125/81 Blood Pressure [Left] O2 Sat by Pulse 100 100 Oximetry 01/13/17 01/13/17 01/13/17 12:13 12:18 12:20 Temperature Pulse Rate 79 87 69 Respiratory Rate Blood Pressure 124/66 Blood Pressure [Left] O2 Sat by Pulse 100 100 Oximetry 01/13/17 01/13/17 01/13/17 12:23 12:28 12:33 Temperature Pulse Rate 71 79 70 Respiratory Rate Blood Pressure Blood Pressure [Left] O2 Sat by Pulse 100 100 100 Oximetry 01/13/17 01/13/17 01/13/17 12:34 12:38 12:43 Temperature Pulse Rate 73 61 80 Respiratory Rate Blood Pressure 116/64 Blood Pressure [Left] O2 Sat by Pulse 100 100 Oximetry 01/13/17 01/13/17 01/13/17 12:48 12:49 12:53 Temperature Pulse Rate 71 82 68 Respiratory Rate Blood Pressure 121/70 Blood Pressure [Left] O2 Sat by Pulse 100 100 Oximetry 01/13/17 01/13/17 01/13/17 12:58 13:03 13:06 Temperature Pulse Rate 65 72 60 Respiratory Rate Blood Pressure 118/62 Blood Pressure [Left] O2 Sat by Pulse 100 100 Oximetry 01/13/17 01/13/17 01/13/17 13:08 13:13 13:18 Temperature Pulse Rate 75 62 77 Respiratory Rate Blood Pressure Blood Pressure [Left] O2 Sat by Pulse 100 100 100 Oximetry 01/13/17 01/13/17 01/13/17 13:19 13:23 13:28 Temperature Pulse Rate 76 70 90 Respiratory Rate Blood Pressure 123/67 Blood Pressure [Left] O2 Sat by Pulse 100 100 Oximetry 01/13/17 01/13/17 01/13/17 13:33 13:35 13:38 Temperature Pulse Rate 94 H 96 H 95 H Respiratory Rate Blood Pressure 159/98 Blood Pressure [Left] O2 Sat by Pulse 100 99 Oximetry 01/13/17 01/13/17 01/13/17 13:43 13:48 13:49 Temperature Pulse Rate 107 H 111 H 110 H Respiratory Rate Blood Pressure Blood Pressure [Left] O2 Sat by Pulse 98 93 92 Oximetry 01/13/17 01/13/17 13:51 13:53 Temperature Pulse Rate 117 H 116 H Respiratory Rate Blood Pressure 195/122 Blood Pressure [Left] O2 Sat by Pulse 98 Oximetry - Exam Breasts: deferred Cardiovascular: Regular rate Lungs: Clear to auscultation Abdomen: Absent: tenderness Vulva: both: normal FHR: category 1 Uterine Contraction Monitor Mode: Internal Cervical Dilatation: 5 (swollen anterior lip) Cervical Effacement Percentage: 80 station: 0, caput Uterine Contraction Frequency (min): 3 adequate Uterine Contraction Pattern: Regular Extremities: normal - Labs Labs: Abnormal Labs 01/13/17 01/13/17 01/13/17 01:50 01:50 03:23 WBC 12.4 H Lactate Dehydrogenase 261 H Ur Specific [place] 1.002 L Laboratory Results - last 24 hr 01/13/17 01/13/17 01/13/17 01:50 01:50 01:50 WBC 12.4 H RBC 4.04 Hgb 12.2 Hct 35.8 MCV 89 MCH 30 MCHC 34 RDW 14.3 Plt Count 222 Creatinine 0.7 Estimated GFR > 60 Uric Acid 5.8 AST 18 ALT 9 Lactate Dehydrogenase 261 H Urine Color Urine Turbidity Urine pH Ur Specific [place] Urine Protein Urine Glucose (UA) Urine Ketones Urine Blood Urine Nitrite Urine Bilirubin Urine Urobilinogen Ur Leukocyte Esterase Urine WBC (Auto) Urine RBC (Auto) U Epithel Cells (Auto) Urine Mucus RPR Nonreactive Blood Type Antibody Screen 01/13/17 01/13/17 01:50 03:23 WBC RBC Hgb Hct MCV MCH MCHC RDW Plt Count Creatinine Estimated GFR Uric Acid AST ALT Lactate Dehydrogenase Urine Color Straw Urine Turbidity Clear Urine pH 6.0 Ur Specific [place] 1.002 L Urine Protein <15 mg/dl Urine Glucose (UA) Neg Urine Ketones Neg Urine Blood Neg Urine Nitrite Neg Urine Bilirubin Neg Urine Urobilinogen < 2.0 Ur Leukocyte Esterase Neg Urine WBC (Auto) < 1.0 Urine RBC (Auto) 2.0 U Epithel Cells (Auto) < 1.0 Urine Mucus Few RPR Blood Type B POSITIVE Antibody Screen Negative
[2017-01-13] MEDS ORDERED: NARCAN 0.4 MG/1 ML IV PRN ×2 (14:05→18:31)
[2017-01-13] MEDS ORDERED: PHENERGAN PR PRN (14:05)
[2017-01-13] MEDS ORDERED: BENADRYL IV PRN (14:05)
--- NOTE | 2017-01-13 14:05 | Anesthesia Day of Surgery ---
Anesthesia Day of Surgery - Day of Surgery Patient Examined: Yes Patient H&P Reviewed: Yes Patient is NPO: Yes
[2017-01-13] MEDS ORDERED: DILAUDID IV PRN (14:06)
[2017-01-13] MEDS ORDERED: XYLOCAINE MPF 2% ONE ×5 (14:25→15:11)
[2017-01-13] MEDS ORDERED: DEMEROL ONE (14:52)
[2017-01-13] MEDS ORDERED: MORPHINE ONE ×2 (14:55→14:56)
[2017-01-13] MEDS ORDERED: SODIUM CHLORIDE FLUSH SYRINGE 10 ML IV NR ×2 (15:00→18:31)
[2017-01-13] MEDS ORDERED: DILAUDID ONE (15:11)
--- NOTE | 2017-01-13 16:24 | Operative Report ---
Operative Report Operative Report: Date: 01/13/2017 Preoperative diagnosis: 1. Intrauterine at 39 weeks 2. Failure to dilate Postoperative diagnosis: 1. Intrauterine at 39 weeks 2. Failure to dilate Procedure: Low uterine transverse incision for delivery Surgeon: Venessa Johnson MD Soda Jerker: Amanda Reese CST Anesthesia: Epidural Anesthesiologist: Christiano Schroeder M.D. Estimated blood loss: 900 mL Urine out: 500 mL Findings: Live born male infant. Weight 6 lbs. 5 oz. Apgars 8 at 1 minute and 9 at 9 minutes. Multiple uterine fibroids with the largest at the left fundal subserosal measuring approximately 7 cm. Grossly normal tubes and ovaries. Procedure: After risk, benefits, complications, consequences and alternatives for this procedure were discussed with patient and consents were reviewed and signed, she was taken to the OR where epidural anesthesia was bolused. She was then placed in the left lateral tilt position, and prepped and draped in the usual sterile fashion. Timeout was performed, and an appropriate level of anesthesia was noted, a Pfannenstiel incision was made and extended to the fascia which was incised and extended in the lateral directions. The overlying fascia was sharply dissected away from the underlying rectus muscles in the superior and inferior directions. The midline was entered bluntly. The vesicouterine fold was incised and with blunt dissection the bladder flap was created. A transverse incision was made in the lower uterine segment and extended in superiolateral direction with finger fractionation. Clear fluid was noted. The infant was delivered from cephalic, LOT position. Mouth and nose were bulb suctioned. Spontaneous cry and excellent tone were noted. Cord was doubly clamped and cut. The was given to /resuscitation team present. The placenta was manually extracted. The uterus was then exteriorized and cleared of any further products of conception or placental tissue. The incision was reapproximated using 0 Vicryl in a running interlocking stitch. Grossly normal uterus, tubes and ovaries were noted. Once hemostasis was noted, the uterus was allowed back into the pelvic cavity. The pelvis was irrigated with warm normal saline. Again hemostasis was noted . Tisseel applied for further hemostasis. Interceed was then placed to prevent adhesions. Then attention was turned to the rectus muscles. The rectus muscles were reapproximated using 0 Vicryl in interrupted fashion. Once hemostasis was noted, the fascia was reapproximated using 0 Vicryl and some running stitch. Once hemostasis was noted skin incision was reapproximated using 4-0 Vicryl on a Santana needle in a subcuticular manner. Counts were correct 3. Patient tolerated procedure well state recovery room in stable condition.
[2017-01-13] MEDS ORDERED: APRESOLINE IV NR (16:25)
[2017-01-13] MEDS ORDERED: CALCIUM GLUCONATE IV NR (16:26)
[2017-01-13] MEDS ORDERED: MAGNESIUM SULFATE 4GM/100ML 4 GM/100 ML BAG IV ONE ×2 (16:26→16:27)
[2017-01-13] MEDS ORDERED: MAGNESIUM SULFATE 40GM/1000ML 40 GM/1,000 ML BAG IV ONE (16:27)
[2017-01-13] MEDS ORDERED: CYTOTEC PR PRN (16:29)
[2017-01-13] MEDS ORDERED: HEMABATE IM PRN (16:29)
[2017-01-13 16:55] LABS: Alanine Aminotransferase 8 units/L (7-56); Lactate Dehydrogenase 214 units/L (91-180); Uric Acid 5.8 mg/dL (3.5-7.6)
[2017-01-13] MEDS ORDERED: MAGNESIUM SULFATE 40GM/1000ML 40 GM/1,000 ML BAG IV SCH (17:00)
[2017-01-13 17:01] LABS: Bacteria,Urine 1+ /HPF (Negative); Bilirubin,Urine NEG (Negative); Blood,Urine LG (Negative); Ketones,Urine TR mg/dL (Negative); Leukocyte Esterase,Urine LG (Negative); Nitrite,Urine NEG (Negative); Protein,Urine <15 mg/dL mg/dL (Negative); Urobilinogen,Urine < 2.0 mg/dL (<2.0)
[2017-01-13] MEDS ORDERED: BICITRA PO ONE (17:05)
[2017-01-13] MEDS ORDERED: PEPCID IV NR (17:05)
[2017-01-13] MEDS ORDERED: REGLAN IV NR (17:05)
[2017-01-13] MEDS ORDERED: ANCEF/STERILE WATER 2 GM/20 ML 2 GM/20 ML SYRINGE IV NR (18:00)
[2017-01-13] MEDS ORDERED: TYLENOL PR PRN (18:31)
[2017-01-13] MEDS ORDERED: MORPHINE IV PRN ×2 (18:31)
[2017-01-13] MEDS ORDERED: ANCEF/NS 1 GM/50 ML 1 GM/50 ML BAG IV SCH (18:31)
[2017-01-13] MEDS ORDERED: TYLENOL PO PRN (18:31)
[2017-01-13] MEDS ORDERED: MYLICON PO PRN (18:31)
[2017-01-13] MEDS ORDERED: TUCKS PAD TP PRN (18:31)
[2017-01-13] MEDS ORDERED: D5LR 1,000 ML IV SCH (18:31)
[2017-01-13 20:53] LABS: Alanine Aminotransferase 7 units/L (7-56); Lactate Dehydrogenase 250 units/L (91-180)
[2017-01-13] MEDS: TORADOL IV PRN (23:17)
[2017-01-14] MEDS ORDERED: ceFAZolin 1 GM in NACL 0.9% 20 ML IV SCH ×3 (02:00→11:45)
[2017-01-14] MEDS: TORADOL IV PRN ×3 (05:21→16:49)
[2017-01-14 06:05] LABS: Hematocrit 29.4 % (30.3-42.9)
[2017-01-14] MEDS ORDERED: BOOSTRIX IM ONE ×2 (06:05→15:20)
--- NOTE | 2017-01-14 08:52 | Progress Note ---
Assessment and Plan - Patient Problems (1) delivery delivered Current Visit: Yes Status: Acute Plan to address problem: -routine pp/ post op care -ambulation once gibson cath d/c -ADAT (2) hypertension Current Visit: Yes Status: Acute Plan to address problem: s/p magnesium >12 hrs pp. BPs currently are normal -monitor closely if >160/105 will add bp agent -no headaches/ blurry vision Subjective - Subjective Date of service: 01/14/17 Principal diagnosis: POD #1 s/p 1 LTCS PP ELEVATED BPS Interval history: Pt doing well, Mag currently d/c due to elevated levels. BPs are normal at this time. Pt s/p 18hrs of magnesium at this this point. Pain is well controlled on pain meds. She has not c/o of headache or dizziness. Patient reports: appetite normal, voiding normally (UPO normal with gibson in place), pain well controlled, no flatus, no bowel movement [place]: doing well Objective - Vital Signs Latest vital signs: Vital Signs Temp Pulse Resp BP BP Pulse Ox 01/14/17 05:21 20 01/14/17 03:32 97.7 F 91 H 17 104/60 91 01/14/17 00:41 98.3 F 95 H 20 97/49 94 01/13/17 23:17 20 01/13/17 22:20 98.8 F 108 H 18 123/55 93 01/13/17 17:45 98.8 F 90 18 143/77 95 01/13/17 17:20 89 28 H 147/75 95 01/13/17 17:10 87 17 137/74 94 01/13/17 17:00 86 21 143/76 94 01/13/17 16:50 82 24 132/73 94 01/13/17 16:40 84 11 L 146/81 95 01/13/17 16:31 86 26 H 163/87 96 01/13/17 16:21 88 17 163/87 96 01/13/17 16:10 84 16 163/87 95 01/13/17 16:00 86 13 154/93 95 01/13/17 15:50 85 11 L 171/86 95 01/13/17 15:40 92 H 15 166/89 95 01/13/17 15:30 93 H 21 167/92 97 01/13/17 15:20 97 H 20 168/89 97 01/13/17 15:18 99 01/13/17 14:03 100 H 98 01/13/17 13:58 105 H 98 01/13/17 13:53 116 H 98 01/13/17 13:51 117 H 195/122 01/13/17 13:49 110 H 92 01/13/17 13:48 111 H 93 01/13/17 13:43 107 H 98 01/13/17 13:38 95 H 99 01/13/17 13:35 96 H 159/98 01/13/17 13:33 94 H 100 01/13/17 13:28 90 100 01/13/17 13:23 70 100 01/13/17 13:19 76 123/67 01/13/17 13:18 77 100 01/13/17 13:13 62 100 01/13/17 13:08 75 100 01/13/17 13:06 60 118/62 01/13/17 13:03 72 100 01/13/17 12:58 65 100 01/13/17 12:53 68 100 01/13/17 12:49 82 121/70 01/13/17 12:48 71 100 01/13/17 12:43 80 100 01/13/17 12:38 61 100 01/13/17 12:34 73 116/64 01/13/17 12:33 70 100 01/13/17 12:28 79 100 01/13/17 12:23 71 100 01/13/17 12:20 69 124/66 01/13/17 12:18 87 100 01/13/17 12:13 79 100 01/13/17 12:08 82 100 01/13/17 12:06 93 H 125/81 01/13/17 12:03 94 H 100 01/13/17 12:00 99.0 F 18 01/13/17 11:58 85 100 01/13/17 11:53 86 99 01/13/17 11:50 69 119/67 01/13/17 11:48 71 100 01/13/17 11:43 69 100 01/13/17 11:38 71 100 01/13/17 11:34 71 110/58 01/13/17 11:33 68 100 01/13/17 11:28 72 100 01/13/17 11:23 73 100 01/13/17 11:19 72 115/58 01/13/17 11:18 71 100 01/13/17 11:13 78 100 01/13/17 11:08 70 100 01/13/17 11:05 66 124/60 01/13/17 11:03 72 100 01/13/17 10:58 63 100 01/13/17 10:53 67 100 01/13/17 10:49 98.8 F 68 18 114/62 01/13/17 10:48 70 100 01/13/17 10:43 68 100 01/13/17 10:38 62 100 01/13/17 10:34 61 118/66 01/13/17 10:33 58 L 100 01/13/17 10:28 60 100 01/13/17 10:24 86 90 01/13/17 10:23 91 H 100 01/13/17 10:20 79 129/74 01/13/17 10:18 85 100 01/13/17 10:13 95 H 100 01/13/17 10:08 72 100 01/13/17 10:04 86 129/79 01/13/17 10:03 88 100 01/13/17 10:00 50 L 55 L 01/13/17 09:57 69 98 01/13/17 09:52 78 98 01/13/17 09:50 80 92 01/13/17 09:49 73 116/71 01/13/17 09:47 88 96 01/13/17 09:42 70 98 01/13/17 09:37 71 97 01/13/17 09:36 64 119/67 01/13/17 09:32 71 97 01/13/17 09:30 74 92 01/13/17 09:27 78 98 01/13/17 09:22 83 99 01/13/17 09:19 65 108/63 01/13/17 09:17 71 97 01/13/17 09:12 69 98 01/13/17 09:07 75 97 01/13/17 09:05 76 118/66 01/13/17 09:02 74 98 01/13/17 08:57 68 98 01/13/17 08:52 87 98 Intake and Output 01/13/17 01/14/17 01/14/17 22:59 06:59 14:59 Intake Total 1020 360 Output Total 2300 1700 Balance -1280 -1340 Intake: IV 900 Oral 360 Intake, Free Water 120 Output: Urine 2300 900 Indwelling Catheter 400 900 Uretheral (Gibson) 700 Emesis 800 Other: Total, Intake Amount 360 Total, Output Amount 400 800 Estimated Blood Loss 900 - Exam Cardiovascular: Present: Normal S1, Normal S2 Lungs: Present: Clear to auscultation, Normal air movement Abdomen: Present: normal appearance, soft. Absent: distention, tenderness, guarding Extremities: Present: normal. Absent: tenderness, edema Incision: Present: normal, dry, intact, dressed - Labs Labs: Abnormal lab results 01/13/17 01/13/17 01/13/17 Range/Units 16:10 16:10 16:10 Hgb (10.1-14.3) gm/dl Hct (30.3-42.9) % Magnesium 1.40 L (1.7-2.3) mg/dL Lactate Dehydrogenase 214 H (91-180) units/L Urine WBC (Auto) 10.0 H (0.0-6.0) /HPF 01/13/17 01/13/17 01/14/17 Range/Units 20:04 22:42 03:17 Hgb 10.0 L (10.1-14.3) gm/dl Hct 29.4 L D (30.3-42.9) % Magnesium 5.70 H (1.7-2.3) mg/dL Lactate Dehydrogenase 250 H (91-180) units/L Urine WBC (Auto) (0.0-6.0) /HPF 01/14/17 Range/Units 04:26 Hgb (10.1-14.3) gm/dl Hct (30.3-42.9) % Magnesium 7.60 H (1.7-2.3) mg/dL Lactate Dehydrogenase (91-180) units/L Urine WBC (Auto) (0.0-6.0) /HPF
[2017-01-14] MEDS: NORCO 5/325 PO PRN (18:27)
[2017-01-14 22:25] LABS: Bilirubin,Urine NEG (Negative); Blood,Urine LG (Negative); Ketones,Urine NEG (Negative); Leukocyte Esterase,Urine TR (Negative); Nitrite,Urine NEG (Negative); Protein,Urine <15 mg/dL mg/dL (Negative); Urobilinogen,Urine < 2.0 mg/dL (<2.0)
[2017-01-15] MEDS: MOTRIN PO PRN ×2 (01:42→15:57)
[2017-01-15] MEDS: MILK OF MAGNESIA PO PRN ×2 (01:54→22:30)
--- NOTE | 2017-01-15 09:19 | Progress Note ---
Assessment and Plan - Patient Problems (1) delivery delivered Current Visit: Yes Status: Acute Plan to address problem: -routine pp/ post op care -ambulation -d/c home if aFVSS (2) hypertension Current Visit: Yes Status: Acute Plan to address problem: s/p magnesium >12 hrs pp. BPs currently are normal -oral agent started today due to labile bps -no headaches/ blurry vision Subjective - Subjective Principal diagnosis: POD #1 s/p 1 LTCS PP ELEVATED BPS Interval history: BP meds started today. Will closely monitor and if stable I d/w going home in the am. No headaches or blurry vision and she states that the pain is well controlled. +toleration of a regular diet. Patient reports: appetite normal, voiding normally, pain well controlled [place]: doing well Objective - Vital Signs Latest vital signs: Vital Signs Temp Pulse Resp BP BP Pulse Ox 01/15/17 02:42 16 01/15/17 01:42 20 01/15/17 01:38 99.5 F 96 H 18 153/82 95 01/14/17 20:15 98.3 F 90 18 140/90 01/14/17 15:15 98.3 F 88 18 140/83 96 01/14/17 09:23 98.7 F 92 H 20 118/70 94 Intake and Output 01/14/17 01/15/17 01/15/17 22:59 06:59 14:59 Intake Total 120 Balance 120 Intake: Oral 120 Other: Total, Intake Amount 120 # Voids Indwelling Catheter 1 - Exam Cardiovascular: Present: Normal S1, Normal S2 Lungs: Present: Clear to auscultation, Normal air movement Abdomen: Present: normal appearance, soft, normal bowel sounds. Absent: distention, tenderness, guarding Uterus: Present: normal, firm, fundal height at umbilicus. Absent: bogginess, tenderness Extremities: Present: normal. Absent: tenderness, edema Incision: Present: normal, dry, intact, dressed (advised to remove dressing this am) - Labs Labs: Abnormal lab results 01/14/17 01/14/17 Range/Units 10:39 20:00 Magnesium 6.30 H (1.7-2.3) mg/dL Urine WBC (Auto) 9.0 H (0.0-6.0) /HPF
[2017-01-15] MEDS: NORMODYNE PO SCH ×2 (09:50→22:31)
[2017-01-15] MEDS: NORCO 5/325 PO PRN ×2 (10:28→18:15)
[2017-01-16] MEDS: NORCO 5/325 PO PRN ×2 (04:43→15:42)
--- NOTE | 2017-01-16 07:25 | Discharge Summary ---
Providers - Providers Date of Admission: 01/13/17 01:56 Date of discharge: 01/16/17 (pt desires d/c today) Attending physician: CLARKE GAN 01/13/17 18:31 Consult to Rn Placement [CONS] Routine Reason For Exam: Primary care physician: CLARKE GAN Hospitalization Reason for admission: active labor Delivery: Procedure: primary low transverse Episiotomy: none Laceration: none Incision: normal, dry, intact Other procedures: none complications: none Discharge diagnosis: IUP at term delivered [place] baby: male Hospital course: uncomplicated section due to arrest of dilatation Pt resting No c/o voiced VSS FF below umb Lochia scant Incision D&I steristrips inplace H&H stable No s/sx of anemia Doing well s/p section P: d/c today with instructions RTO one week post care and son's circ RX provided at d/ c Condition at discharge: Good Disposition: DC- TO HOME OR SELFCARE - Discharge Diagnoses (1) delivery delivered Status: Acute Comment: RTO 1 week for postop care Plan - Discharge Medications Prescriptions: Ibuprofen [Motrin 800 MG tab] 800 mg PO TID PRN #30 tablet PRN Reason: Pain Lidocain2.5%/Prilocai2.5% [Emla] 5 gm TP ONCE #1 tube oxyCODONE /ACETAMINOPHEN [Percocet 5/325 mg] 1 - 2 tab PO Q4HR PRN #20 tablet PRN Reason: Pain - Provider Discharge Summary Activity: routine, no sex for 6 weeks, no heavy lifting 4 weeks, no strenuous exercise Diet: routine Instructions: routine Additional instructions: [] Smoking cessation referral if applicable(refer to patient education folder for contact #) [] Refer to [facility] Booklet Call your doctor immediately for: * Fever > 100.5 * Heavy vaginal bleeding ( >1 pad per hour) * Severe persistent headache * Shortness of breath * Reddened, hot, painful area to leg or breast * Drainage or odor from incision. * Keep incision clean and dry at all times and follow doctor's instructions regarding bathing/showering - Follow up plan Follow up: CLARKE GAN MD [Primary Care Provider] - 7 Days (Congratulations! Please call [phone] to schedule your postoperative visit and your son's circumcision in one week. Bring the EMLA cream with you to his visit. Take medications as prescribed. Call with any concerns. )
[2017-01-16] MEDS: NORMODYNE PO SCH (10:45)
[2017-01-16] MEDS: MOTRIN PO PRN (15:40)
[2017-01-16 16:50] VITALS: BP 128/76
--- NOTE | 2017-01-20 14:39 | Query-Anemia ---
Maeve Pham Alex Date:___01/20/17 Yarder Operator/CDS: Keya / Damian Phone#:___[phone] Exercise your independent professional judgment when responding to this query. Questions asked do not imply a particular answer is desired or expected. We greatly appreciate your clarification on this issue. Clinical Documentation States: 31 year old female was admitted on 01/13/17 The Operative report (Dr. Johnson) states " Preoperative diagnosis: 1. Intrauterine at 39 weeks 2. Failure to dilate Postoperative diagnosis: 1. Intrauterine at 39 weeks 2. Failure to dilate Procedure: Low uterine transverse incision for delivery Estimated blood loss: 900 mL " Clinical Findings Show: 01/13/17 01/14/17 Hgb: 12.2 10.0 Hct: 35.8 29.4 Etiology: [ ] Precipitous Drop in Hemoglobin [ ] Precipitous Drop in Hematocrit [ ] Anemia due to acute blood loss [ x] Anemia due to chronic blood loss [ ] Anemia secondary to ESRD [ ] Anemia secondary to neoplastic disease [ ] Iron deficiency anemia due to malabsorption [ ] GI Bleed from: [ ] Anemia of chronic disease ,Other: [ ] Other: [ ] Unable to determine [ ] Comment/Explanation: Present on Admission: [ ] Yes (Y) [ ] Clinically undeterminable (W) [ x ] No (N) Please also document response in your Progress Notes and/or Discharge Summary and indicate if the condition was present on admission. SLAVA
== END 2017-01-16 17:16 | disposition home or self-care (01) | DRG 765 ==
LOC: TRG 01:09 → LD 01:56 → OB 19:43
PROVIDERS: ADMIT Obstetrics & Gynecology; ATTEND Obstetrics & Gynecology
PROC: 10D00Z1 Extraction of Products of Conception, Low, Open Approach (ICD-10-PCS; principal; 2017-01-13)
PROC: 3E0234Z Introduction of Serum, Toxoid and Vaccine into Muscle, Percutaneous Approach (ICD-10-PCS; 2017-01-14)
DX: O76 Abnormality in fetal heart rate and rhythm complicating labor and delivery (principal); R71.0 Precipitous drop in hematocrit; O99.824 Streptococcus B carrier state complicating childbirth; O62.0 Primary inadequate contractions; Z3A.39 39 weeks gestation of pregnancy; Z37.0 Single live birth; O77.0 Labor and delivery complicated by meconium in amniotic fluid; D57.3 Sickle-cell trait; O16.5 Unspecified maternal hypertension, complicating the puerperium; O99.02 Anemia complicating childbirth; Z23 Encounter for immunization
CPT/HCPCS: 36415; 81001; 82565; 83615; 83735; 84450; 84460; 84550; 85014; 85018; 85027; 85049; 86592; 86850; 86900; 86901; 90715; 99211; C1765; C9250; G0463; J0290; J0360; J0690; J1170; J1885; J2175; J2270; J2590; J2765; J3010; J3475; J7030; J7120

== ENCOUNTER 2019-01-03 11:30 | Inpatient (IN) | payer OTHER, MEDICAID ==
--- NOTE | 2019-01-02 17:48 | History and Physical Report ---
History of Present Illness Date of examination: 12/26/18 Chief complaint: C/s and removal of pelvic mass History of present illness: Past History : 2 Term Births: 1 Living Children: 1 Para: 1 # 1 Delivery date: 01/13/2017 Weeks Gestation: 39 Delivery type: Anesthesia type: epidural Delivery location: [facility] Sex: male weight: 6.31 Comments: Failure to dilate Past Medical History: Reviewed history from 06/08/2016 and no changes required: Negative Past Medical History Past Surgical History: Past Medical History Surgery (Non-nurse obgyn): Abnormal PAP: negative JENNIFER Exposure: negative Infertility: negative Uterine Anomaly: negative Uterine Surgery (not C/S): negative Other Gynecologic Problems: negative Medical History Comments: Sickle Cell Traits Social Hx: no e/t/d 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 of genital herpes: no Rash, Viral, or Febrile illness since last LMP? no Varicella/Chicken Pox Status: Immunized Genetic History Congenital Heart Defect: Mom: no Alvaro Disease: Mom: no Thalassemia Mom: no Neural Tube Defect Mom: no Down's Syndrome Mom: no Jabier-Sachs Mom: no Sickle Cell Disease/Trait Mom: yes Hemophilia Mom: no Muscular Dystrophy Mom: no Cystic Fibrosis Mom: no [place] Chorea Mom: no Mental Retardation Mom: no Fragile X Mom: no Other Genetic/Chromosomal Disorder Mom: no Child w/other defect Mom: no FALSECurrent Allergies (reviewed today): No known allergies Past History - Obstetrical History Expected Date of Delivery: 01/10/19 Actual Gestation: 38 Week(s) 6 Day(s) : 2 Para: 1 Medications and Allergies Allergies Allergy/AdvReac Type Severity Reaction Status Date / Time No Known Allergies Allergy Unverified 01/13/17 01:11 Home Medications Medication Instructions Recorded Confirmed Last Taken Type Ibuprofen [Motrin 800 MG tab] 800 mg PO TID PRN #30 tablet 01/13/17 Unknown Rx Lidocain2.5%/Prilocai2.5% [Emla] 5 gm TP ONCE #1 tube 01/13/17 Unknown Rx Vit No.130/Iron/Folic 1 each PO QDAY 01/13/17 01/13/17 01/12/17 History [ Tablet] oxyCODONE /ACETAMINOPHEN [Percocet 1 - 2 tab PO Q4HR PRN #20 tablet 01/13/17 Unknown Rx 5/325 mg] Review of Systems All systems: negative - Physical Exam Breasts: Positive: deferred Cardiovascular: Regular rate Lungs: Positive: Clear to auscultation, Normal air movement Uterus: Positive: enlarged Results All other labs normal. Assessment and Plan - Patient Problems (1) Maternal care due to low transverse uterine scar from previous delivery Status: Acute Plan to address problem: Consent reviewed and signed . The risks and alternatives for this surgery were reviewed with the patient. She was informed of possible bleeding, infection, injury to bowel, bladder, ureters or other adjacent organs. The patient was instructed/informed the following: The normal length of hospital stay for this procedure. Nothing to eat or drink after midnight the evening prior to surgery. Patient was given ample opportunity to have all her questions answered before signing informed consent. She declines sterilization (2) Pelvic mass during Status: Acute Plan to address problem: Records reviewed, she's aware the pelvic mass wll be assessed and removed during her c/s. She was informed her fallopian tube and/or ovary may need to be removed. The importance of proper visualization explained she desires to attempt removal thru the previous pfannestial incision however she was informed she may also require a vertical incision. Patient voiced understanding and agrees with plan of care (3) Sickle cell trait Status: Chronic
[~2019-01-03 11:30] MED LIST: BICITRA ORAL LIQD 30ML PO NR; FAMOTIDINE 20 MG/2 ML INJ IV NR; LACTATED RINGERS 1,000 ML IV SCH; METOCLOPRAMIDE 10 MG/2 ML INJ IV NR; OXYTOCIN 20 UNIT/1000ML DRIP 20 UNITS/1,000 ML BAG IV SCH; ceFAZolin/Water 2 GM/20 ML 2 GM/20 ML SYRINGE IV NR
[2019-01-03 14:39] LABS: Hematocrit 32.3 % (30.3-42.9); Hemoglobin 10.5 gm/dl (10.1-14.3); Mean Corpuscular HGB Conc 33 % (30-34); Mean Corpuscular Volume 80 fl (79-97); Platelet Count 236 K/mm3 (140-440); Red Blood Count 4.05 M/mm3 (3.65-5.03); Red Cell Distribution Width 14.6 % (13.2-15.2)
--- NOTE | 2019-01-03 15:02 | Anesthesia Day of Surgery ---
Anesthesia Day of Surgery - Day of Surgery Patient Examined: Yes Patient H&P Reviewed: Yes Patient is NPO: Yes
--- NOTE | 2019-01-03 15:02 | Anesthesia Consultation ---
Anesthesia Consult and Med Hx Date of service: 01/03/19 - Airway Anesthetic Teeth Evaluation: Good ROM Head & Neck: Adequate Mental/Hyoid Distance: Adequate Mallampati Class: Class II Intubation Access Assessment: Good - Pulmonary Exam CTA: Yes - Cardiac Exam Cardiac Exam: RRR - Pre-Operative Health Status ASA Pre-Surgery Classification: ASA2 Proposed Anesthetic Plan: Spinal - Pulmonary Hx Asthma: No COPD: No Hx Pneumonia: No - Cardiovascular System Hx Hypertension: Yes (preeclampsi 2017) - Central Nervous System Hx Seizures: No Hx Psychiatric Problems: No - Endocrine Hx Renal Disease: No Hx End Stage Renal Disease: No Hx Hypothyroidism: No Hx Hyperthyroidism: No - Hematic Hx Anemia: No Hx Sickle Cell Disease: Yes (trait) - Other Systems Hx Alcohol Use: No
[2019-01-03] MEDS ORDERED: PROMETHAZINE 25 MG TAB PO PRN (15:30)
[2019-01-03] MEDS ORDERED: ONDANSETRON 4 MG/2 ML INJ IV PRN (15:30)
[2019-01-03] MEDS ORDERED: HYDROmorphone 1 MG/1 ML INJ IV PRN ×2 (15:30)
[2019-01-03] MEDS ORDERED: ONDANSETRON 4 MG/2 ML INJ ONE ×2 (15:52→15:53)
[2019-01-03] MEDS ORDERED: DEXMEDETOMIDINE 200 MCG/2 ML VIAL IV ONE (15:52)
[2019-01-03] MEDS ORDERED: NALOXONE 0.4 MG/1 ML INJ IV PRN ×2 (16:00→19:33)
[2019-01-03] MEDS ORDERED: KETOROLAC 30 MG/1 ML INJ ONE (16:00)
[2019-01-03] MEDS ORDERED: fentaNYL-BUPIV 2 MCG/ML-0.125% 200 MCG/100 ML BAG EPIDURAL SCH (16:00)
[2019-01-03] MEDS ORDERED: PROMETHAZINE 25 MG RECT SUPP PR PRN (16:00)
[2019-01-03] MEDS ORDERED: diphenhydrAMINE 50 MG/ML VIAL ONE (16:00)
[2019-01-03] MEDS ORDERED: SODIUM CHLORIDE 0.9% IRR 1,500 ML BOTTLE IR ONE (16:06)
[2019-01-03] MEDS ORDERED: WATER FOR IRRIG STERILE 1,500 ML BOTTLE IR ONE (16:06)
[2019-01-03] MEDS ORDERED: KETAMINE/STERILE WATER 50 MG/ML SYRINGE ONE (16:31)
[2019-01-03] MEDS ORDERED: ePHEDrine SULFATE 50 MG/1 ML INJ ONE (16:53)
--- NOTE | 2019-01-03 17:16 | Event Note ---
Date: 01/03/19 Intraoperative consult called by Dr. Johnson. Patient with large abdominal mass seen on preoperative imaging felt to be 18cm pelvic mass most likely complex cyst of L ovary. Plan was to remove mass if possible during csection per OBGYN. During csection, patient's ovaries were normal and a large mass was found unrelated to these structures. General surgery called to evaluate intraoperatively. The area was explored via pfannesteil incision. The small bowel appeared unremarkable as did the colon. The visualized portion of the stomach and omentum were unremarkable. There is a large, soft, left sided retroperitoneal mass that does not appear to involve the bowel or reproductive organs. No evidence of inflammation, bleeding. Per Dr. Johnson, patient has not reported any symptoms associated with this mass. Patient has had ultrasound performed at outside facility. Would recommend completion of current procedure without disturbing mass. Obtain CT scan A/P with oral and IV contrast to further evaluate mass, anatomic location, etc. Further recs pending CT scan. Thank you, please call with questions.
--- NOTE | 2019-01-03 17:21 | Post Anesthesia Evaluation ---
- Post Anesthesia Evaluation Patient Participated: Yes Airway Patent: Yes Stable Respiratory Function: Yes Nausea/Vomiting: No Temp > 96.8F: Yes Pain Manageable: Yes Adequeate Hydration: Yes Anesthesia Complications: No Block Receding Appropriately: Yes Patient on Ventilator: No
--- NOTE | 2019-01-03 18:05 | Operative Report ---
PREOPERATIVE DIAGNOSES: Intrauterine at 39 weeks, previous delivery, desires repeat delivery, pelvic mass, sickle cell trait, chronic anemia. POSTOPERATIVE DIAGNOSES: Intrauterine at 39 weeks, previous delivery, desires repeat delivery, pelvic mass, sickle cell trait, chronic anemia. SURGEON: Dr. Johnson. HAND SILVERING SUPERVISOR: Elisabet Reese, ELINOR INTRAOPERATIVE CONSULTATION: Dr. Chris Hester. PROCEDURE: Repeat low transverse delivery. ANESTHESIOLOGIST: Dr. Loya. ANESTHESIA: Spinal epidural. COMPLICATIONS: None. ESTIMATED BLOOD LOSS: 1000 mL. FINDINGS: Live born female infant, weight 8 pounds 2 ounces, Apgars 8 and 9. The patient was noted to have a 7 cm left fundal subserosal fibroid. The patient also had an approximately 4 cm intramural right fibroid. Also, she had grossly normal tubes and ovaries. The patient was also noted to have a soft mass involving the right abdomen and pelvic area. Please see Dr. Hester's intraoperative consultation. DESCRIPTION OF PROCEDURE: After risks, benefits, complications, consequences and alternatives of the procedure were discussed with the patient, she voiced understanding and desired to proceed, she was taken to the OR where spinal epidural anesthesia was placed. She was placed in the left lateral tilt position and prepped and draped in the usual sterile fashion. Timeout was performed. Once the appropriate level of anesthesia was noted, Pfannenstiel incision was made and extended to the fascia, which was incised and extended in lateral direction. The underlying fascia was sharply dissected away from the rectus muscle in the superior and inferior direction. The midline was entered bluntly. The vesicouterine fold was incised with blunt dissection. Bladder flap was created. A transverse incision was made in the lower uterine segment and extended in superolateral direction with finger fractionation. Clear fluid was noted. was delivered from the cephalic position with spontaneous cry and excellent tone. Mouth and nose were bulb suctioned. Cord was doubly clamped and cut and the was given to the resuscitation team present. The placenta was manually extracted. The uterus was exteriorized and cleaned of any further products of conception and placental tissue in the incision. The uterine incision was reapproximated using 0 Vicryl in a running interlocking stitch followed by further suture of 0 Vicryl in imbricating fashion. Once hemostasis was noted, the uterus was placed anteriorly at which point grossly normal ovaries and tubes were noted and the above-mentioned mass was noted at which point, Dr. Romi Hester was consulted. Please see her consultation note. The decision was made to allow for further evaluation of this mass. Therefore, the uterus was allowed back in the pelvic cavity. The pelvis was irrigated with warm normal saline. Once hemostasis was noted, the rectus muscles were reapproximated using 3-0 Vicryl interrupted simple stitch x 4. Once hemostasis was noted on the rectus muscle, the fascia was reapproximated using 0 Vicryl in a simple running stitch. Once hemostasis was noted, the skin incision was reapproximated using 4-0 Vicryl in a subcuticular manner. The patient tolerated the procedure well and was taken to the recovery room in stable condition. JOB# [id number] SHERLY/CEE
[2019-01-03] MEDS ORDERED: MAGNESIUM HYDROXIDE (MOM) ORAL LIQD UDC PO PRN (19:33)
[2019-01-03] MEDS ORDERED: OXYTOCIN 20 UNIT/1000ML DRIP 20 UNITS/1,000 ML BAG IV SCH (19:33)
[2019-01-03] MEDS ORDERED: LANOLIN/ZINC/DIMETHICONE (LANSINOH) 7 GM TP PRN (19:33)
[2019-01-03] MEDS ORDERED: WITCH HAZEL/ GLYCERIN PAD TP PRN (19:33)
[2019-01-03] MEDS: MORPHINE 4 MG/1 ML INJ IV PRN (20:05)
[2019-01-03] MEDS: KETOROLAC 30 MG/1 ML INJ IV SCH (20:56)
[2019-01-03] MEDS: D5W/LACTATED RINGERS 1,000 ML IV SCH (20:59)
[2019-01-03] MEDS: ceFAZolin/NS 1 GM/50 ML 1 GM/50 ML BAG IV SCH (22:35)
[2019-01-04] MEDS: MORPHINE 4 MG/1 ML INJ IV PRN ×2 (00:12→04:37)
[2019-01-04] MEDS: KETOROLAC 30 MG/1 ML INJ IV SCH ×2 (02:55→13:03)
[2019-01-04] MEDS: D5W/LACTATED RINGERS 1,000 ML IV SCH (04:26)
[2019-01-04] MEDS: ceFAZolin/NS 1 GM/50 ML 1 GM/50 ML BAG IV SCH (05:55)
[2019-01-04] MEDS: oxyCODONE /ACETAMINOPHEN 5-325MG TAB PO PRN ×3 (08:00→17:40)
--- NOTE | 2019-01-04 08:21 | Progress Note ---
Assessment and Plan patient doing well, no complaints. VSSAF. H&H ordered but not yet drawn. Patient reports ambulating to bathroom w/o d/d anemia. Lochia scant, fundus firm, dressing D&I. - Patient Problems (1) delivery delivered Current Visit: No Status: Acute Plan to address problem: continue postop pathway Pt to shower this evening and rn to remove dressing Advance diet and activity as tolerated Subjective - Subjective Date of service: 01/04/19 Principal diagnosis: Postop day #1 s/p repeat c/s Patient reports: appetite normal, voiding normally, pain well controlled, ambulating normally, no dizzy ambulation, no nauseated [place]: doing well, bottle feeding Objective - Vital Signs Latest vital signs: Vital Signs Temp Pulse Resp BP BP Pulse Ox 01/04/19 05:05 97.9 F 63 20 108/65 97 01/04/19 00:34 98.3 F 61 18 118/69 97 01/03/19 18:25 97.5 F L 01/03/19 18:20 76 18 108/71 100 01/03/19 18:05 100 H 18 100/59 100 01/03/19 17:50 92 H 18 104/64 98 01/03/19 17:35 102 H 17 99/47 98 01/03/19 17:30 104 H 19 99/48 98 01/03/19 17:25 111 H 16 105/58 95 01/03/19 17:20 97.9 F 100 H 15 112/66 100 01/03/19 13:12 58 L 130/70 01/03/19 13:11 98.9 F 20 130/70 Intake and Output 01/03/19 01/04/19 01/04/19 23:59 07:59 15:59 Intake Total 2049 1051.25 Output Total 450 1100 Balance 1600 -48.75 Intake: IV 2049 931.25 ANCEF/NS 1 GM/50 ML 1 gm 50 In 50 ml @ 100 mls/hr IV Q8H HARPAL Rx#:[id number] D5lr 1,000 ml @ 125 mls/ 931.25 hr IV DIRECT HARPAL Rx#: [id number] Oral 120 Output: Urine 450 1100 Indwelling Catheter 700 Void 400 Other: Total, Intake Amount 120 Total, Output Amount 400 # Voids Void 1 Estimated Blood Loss 1,000 - Exam Breasts: Present: normal Cardiovascular: Present: Regular rate Lungs: Present: Normal air movement Abdomen: Present: normal appearance, soft Vulva: both: normal Uterus: Present: normal, firm, fundal height below umbilicus Extremities: Present: normal Deep Tendon Reflex Grade: Normal +2 Incision: Present: normal, dry, dressed - Labs Labs: Abnormal lab results 01/03/19 Range/Units 13:20 MCH 26 L (28-32) pg
[2019-01-04 08:24] LABS: Hematocrit 23.5 % (30.3-42.9); Hemoglobin 7.7 gm/dl (10.1-14.3)
[2019-01-04] MEDS: SIMETHICONE 80 MG CHEW TAB PO PRN (15:43)
[2019-01-04] MEDS ORDERED: TETANUS,DIPH,PERTUSS(ACELL) VACCINE 0.5 ML SYRINGE IM ONE (17:29)
[2019-01-04] MEDS: FERROUS SULFATE 325 MG TAB PO SCH (21:28)
[2019-01-04] MEDS: IBUPROFEN 800 MG TAB PO PRN (21:56)
[2019-01-05] MEDS: oxyCODONE /ACETAMINOPHEN 5-325MG TAB PO PRN ×2 (02:52→14:51)
[2019-01-05] MEDS: SIMETHICONE 80 MG CHEW TAB PO PRN (02:53)
[2019-01-05] MEDS: IBUPROFEN 800 MG TAB PO PRN ×2 (05:05→14:15)
--- NOTE | 2019-01-05 08:49 | Progress Note ---
Assessment and Plan - Patient Problems (1) delivery delivered Onset Date: ~01/03/19 Current Visit: No Status: Acute Plan to address problem: Pt sitting up in bed having diet. No c/o voiced Asking @ scan for today Labs have been drawn Will do CT after resulted VSS FF below umb Lochia scant Incision D&I H&H 09/04 Asymptomatic Iron po ordered. Stable s/p repeat section P: Will continue pathway Advance as tolerated. Reval for d/c after CT is done consulted. (2) Pelvic mass during Onset Date: ~01/05/19 Current Visit: No Status: Acute Plan to address problem: CT with contrast ordered for this AM Labs have been drawn. Subjective - Subjective Date of service: 01/05/19 (pt desires d/c today if possible) Principal diagnosis: Postop day #2 s/p repeat c/s; abdominal mass: CT this AM Patient reports: appetite normal, voiding normally, pain well controlled, ambulating normally [place]: doing well Objective - Vital Signs Latest vital signs: Vital Signs Temp Pulse Resp BP 01/05/19 06:05 18 01/05/19 05:30 98.2 F 87 18 120/78 01/05/19 05:05 18 01/05/19 03:52 18 01/05/19 02:52 20 01/04/19 22:56 18 01/04/19 21:56 18 01/04/19 18:40 18 01/04/19 16:41 98.4 F 77 18 140/85 01/04/19 12:45 98 F 83 20 128/77 Intake and Output 01/04/19 01/05/19 01/05/19 22:59 06:59 14:59 Intake Total 480 360 Balance 480 360 Intake: Oral 480 Intake, Free Water 360 Other: Total, Intake Amount 480 # Voids Void 1 1 - Exam Breasts: Present: normal Cardiovascular: Present: Regular rate Lungs: Present: Clear to auscultation Abdomen: Present: normal appearance, soft, normal bowel sounds Vulva: both: normal Uterus: Present: normal, fundal height below umbilicus Extremities: Present: normal Incision: Present: normal, dry, intact
[2019-01-05 09:53] LABS: BUN/Creatinine Ratio 4; Blood Urea Nitrogen 4 mg/dL (7-17); Calcium 8.4 mg/dL (8.4-10.2); Hemolysis Index 0
--- NOTE | 2019-01-05 14:14 | Consultation ---
History of Present Illness Consult date: 01/05/19 Chief complaint: abdominal mass - History of present illness History of present illness: 33 yo F who presented to hospital for csection. Patient had MFM workup as outpatient which included abdominal ultrasound. This revealed 18cm cystic mass likely ovarian cyst on left. Dr. Johnson discussed possibly removing cyst during csection with patient. Surgery called for intraoperative consult and mass appeared to be retroperitoneal, not involving reproductive organs, bowel, etc. Patient is asymptomatic. Denies kidney disease. No flank pain. Abdominal pain today is directly related to surgical incision. Past History Past Medical History: No medical history Past Surgical History: Social history: no significant social history Family history: no significant family history Medications and Allergies Allergies Allergy/AdvReac Type Severity Reaction Status Date / Time No Known Allergies Allergy Verified 01/03/19 13:14 Home Medications Medication Instructions Recorded Confirmed Last Taken Type Ibuprofen [Motrin 800 MG tab] 800 mg PO TID PRN #30 tablet 01/13/17 01/05/19 Unknown Rx Lidocain2.5%/Prilocai2.5% [Emla] 5 gm TP ONCE #1 tube 01/13/17 01/05/19 Unknown Rx Vit No.130/Iron/Folic 1 each PO QDAY 01/13/17 01/05/19 01/12/17 History [ Tablet] oxyCODONE /ACETAMINOPHEN [Percocet 1 - 2 tab PO Q4HR PRN #20 tablet 01/13/17 01/05/19 Unknown Rx 5/325 mg] Ferrous Sulfate [Feosol 325 MG tab] 325 mg PO BID #90 tablet 01/03/19 Unknown Rx Ibuprofen [Motrin 800 MG tab] 800 mg PO TID PRN #30 tablet 01/03/19 Unknown Rx oxyCODONE /ACETAMINOPHEN [Percocet 1 - 2 tab PO Q4HR PRN #20 tablet 01/03/19 Unknown Rx 5/325 mg] Active Meds: Active Medications Ferrous Sulfate (Feosol) 325 mg PO BID HARPAL Last Admin: 01/04/19 21:28 Dose: 325 mg Documented by: Oxytocin/Sodium Chloride (Pitocin/Ns 20 Unit/1000ml Drip) 20 units in 1,000 mls @ 250 mls/hr IV DIRECT HARPAL Dextrose/Lactated Ringer's (D5lr) 1,000 mls @ 125 mls/hr IV DIRECT HARPAL Last Admin: 01/04/19 04:26 Dose: 125 mls/hr Documented by: Ibuprofen (Ibuprofen) 800 mg PO Q6H PRN PRN Reason: Pain, Mild (1-3) Last Admin: 01/05/19 05:05 Dose: 800 mg Documented by: Magnesium Hydroxide (Milk Of Magnesia) 30 ml PO QHS PRN PRN Reason: Constip Unrelieved By Senna Last Admin: 01/04/19 21:28 Dose: 30 ml Documented by: Morphine Sulfate (Morphine) 2 mg IV Q4H PRN PRN Reason: Pain, Moderate (4-6) Morphine Sulfate (Morphine) 4 mg IV Q4H PRN PRN Reason: Pain , Severe (7-10) Last Admin: 01/04/19 04:37 Dose: 4 mg Documented by: Multi-Ingredient Ointment (Lansinoh) 1 applic TP PRN PRN PRN Reason: dryness/cracking Last Admin: 01/04/19 09:24 Dose: 1 applic Documented by: Naloxone HCl (Naloxone) 0.1 mg IV Q2MIN PRN PRN Reason: Res Rate </= 8 or 02 SAT < 92% Ondansetron HCl (Zofran) 4 mg IV Q8H PRN PRN Reason: Nausea And Vomiting Oxycodone/Acetaminophen (Percocet 5/325) 2 tab PO Q6H PRN PRN Reason: Pain, Moderate (4-6) Last Admin: 01/05/19 02:52 Dose: 2 tab Documented by: Promethazine HCl (Phenergan) 25 mg PO Q6H PRN PRN Reason: Nausea And Vomiting Promethazine HCl (Phenergan) 25 mg NH Q6H PRN PRN Reason: Nausea And Vomiting Simethicone (Mylicon) 80 mg PO Q6H PRN PRN Reason: Gas pain Last Admin: 01/05/19 02:53 Dose: 80 mg Documented by: Ema Humphries/Glycerin (Tucks Pad) 1 each TP PRN PRN PRN Reason: Hemorrhoids/cleansing/soothing Review of Systems All systems: negative (10 pt ROS performed and negative except for that listed in HPI) Exam Vital Signs Temp Resp BP 98.9 F 20 130/70 01/03/19 13:11 01/03/19 13:11 01/03/19 13:11 Narrative exam: Gen: AAOx3. NAD ENT: No scleral icterus CV: s1, S2+ Resp: even and unlabored Abd: soft, NT. Ext: no c/c/e Results - Labs 01/04/19 07:40 01/05/19 09:30 Abnormal lab results 01/05/19 Range/Units 09:30 Sodium 136 L (137-145) mmol/L BUN 4 L (7-17) mg/dL Glucose 129 H (65-100) mg/dL Diabetes panel 01/05/19 Range/Units 09:30 Sodium 136 L (137-145) mmol/L Potassium 3.6 (3.6-5.0) mmol/L Chloride 100.5 (98-107) mmol/L Carbon Dioxide 23 (22-30) mmol/L BUN 4 L (7-17) mg/dL Creatinine 1.0 (0.7-1.2) mg/dL Glucose 129 H (65-100) mg/dL Calcium 8.4 (8.4-10.2) mg/dL Calcium panel 01/05/19 Range/Units 09:30 Calcium 8.4 (8.4-10.2) mg/dL Pituitary panel 01/05/19 Range/Units 09:30 Sodium 136 L (137-145) mmol/L Potassium 3.6 (3.6-5.0) mmol/L Chloride 100.5 (98-107) mmol/L Carbon Dioxide 23 (22-30) mmol/L BUN 4 L (7-17) mg/dL Creatinine 1.0 (0.7-1.2) mg/dL Glucose 129 H (65-100) mg/dL Calcium 8.4 (8.4-10.2) mg/dL Adrenal panel 01/05/19 Range/Units 09:30 Sodium 136 L (137-145) mmol/L Potassium 3.6 (3.6-5.0) mmol/L Chloride 100.5 (98-107) mmol/L Carbon Dioxide 23 (22-30) mmol/L BUN 4 L (7-17) mg/dL Creatinine 1.0 (0.7-1.2) mg/dL Glucose 129 H (65-100) mg/dL Calcium 8.4 (8.4-10.2) mg/dL - Imaging CT scan - abdomen: report reviewed, image reviewed CT scan - pelvis: report reviewed, image reviewed Assessment and Plan 33 yo F s/p csection with large retroperitoneal mass CT scan A/P - Multiple cysts on left side, retroperitoneum likely associated with left kidney with a giant cyst measuring up to 19cm. R kidney appears normal but only small amount of left kidney parenchyma is seen. Post surgical changes in pelvis and of subcutaneous tissue at site of incision. Intraabdominal organs are grossly unremarkable. Official radiology read is pending. Plan: 1. continue current diet 2. post op management per OB 3. recommend urology consultation as outpatient. Pt asymptomatic from cysts with normal [employer] 4. No general surgery intervention. Will follow up on official radiology reading of CT Ct results discussed with patient and family at bedside (with her permission). All questions answered. D/W Dr. Robertson. Thank you. Please call with questions.
--- NOTE | 2019-01-05 14:31 | Discharge Summary ---
Providers - Providers Date of Admission: 01/03/19 11:37 Date of discharge: 01/05/19 (pt desires d/c) Attending physician: JUAN CARLOS GRIER 01/03/19 18:08 Consult to Physician [CONS] Routine Comment: Consulting Provider: BURT JORGE Physician Instructions: Reason For Exam: abdominal mass 01/03/19 19:33 Consult to Manager Medical [CONS] Routine Reason For Exam: Primary care physician: JUAN CARLOS GRIER Hospitalization Reason for admission: section Delivery: Procedure: repeat low transverse Episiotomy: none Laceration: none Incision: normal, dry, intact Other procedures: other (CT scan Pt will f/u outpt ) complications: none Discharge diagnosis: IUP at term delivered [place] baby: female Hospital course: uncomplicated section pt has a known abdominal/pelvic/kidney mass that was evaluated by CT this AM. Pt was seen by surgeon, Dr Jorge and instructed to f/u with renal as outpt for plan of care. Progress note written Condition at discharge: Good Disposition: DC-01 TO HOME OR SELFCARE - Discharge Diagnoses (1) delivery delivered Status: Acute Comment: RTO 1 week for postop care (2) Pelvic mass during Status: Resolved Comment: pt will call and schedule appt for outpt care with Renal Plan - Discharge Medications Prescriptions: Ferrous Sulfate [Feosol 325 MG tab] 325 mg PO BID #90 tablet Ibuprofen [Motrin 800 MG tab] 800 mg PO TID PRN #30 tablet PRN Reason: Pain oxyCODONE /ACETAMINOPHEN [Percocet 5/325 mg] 1 - 2 tab PO Q4HR PRN #20 tablet PRN Reason: Pain - Provider Discharge Summary Activity: routine, no sex for 6 weeks, no heavy lifting 4 weeks, no strenuous exercise Diet: routine Instructions: routine Additional instructions: [] Smoking cessation referral if applicable(refer to patient education folder for contact #) [] Refer to [facility] Booklet Call your doctor immediately for: * Fever > 100.5 * Heavy vaginal bleeding ( >1 pad per hour) * Severe persistent headache * Shortness of breath * Reddened, hot, painful area to leg or breast * Drainage or odor from incision. * Keep incision clean and dry at all times and follow doctor's instructions regarding bathing/showering - Follow up plan Follow up: PORSHA MAYES MD [Staff Physician] - 7 Days JUAN CARLOS GRIER MD [Primary Care Provider] - 7 Days (Congratulations! please call [phone] to schedule your postoperative visit. take medications as prescribed. call with concerns. make sure to arrange follow up with renal as instructed.)
--- NOTE | 2019-01-05 14:42 | Cat Scan Report ---
CT ABDOMEN AND PELVIS WITH CONTRAST INDICATION: Abdominopelvic mass. COMPARISON: No relevant prior imaging study available. TECHNIQUE: Axial, coronal and sagittal CT imaging of the abdomen and pelvis was performed after inje ction of 100 mL Omnipaque 300 IV contrast and oral contrast. All CT scans at this location are perfo rmed using CT dose reduction for ALARA by means of automated exposure control. FINDINGS: LOWER CHEST: No significant abnormality. LIVER: No significant abnormality. BILIARY: Cholelithiasis is seen without evidence of acute cholecystitis. There is no biliary ductal d ilatation. PANCREAS: No significant abnormality. SPLEEN: No significant abnormality. ADRENALS: No significant abnormality. KIDNEYS AND URETERS: There is severe left hydronephrosis without a distinct obstructive stone. Mild r ight hydronephrosis is noted as well without a distinct obstructive stone. No other significant abnor mality is seen. GI TRACT: No significant abnormality of the stomach, small bowel or colon. Unremarkable appendix. PERITONEUM: No free fluid. No free air. No fluid collection. LYMPH NODES: No significant adenopathy. VASCULATURE: No significant abnormality. URINARY BLADDER: No significant abnormality. REPRODUCTIVE ORGANS: The uterus is markedly enlarged and contains numerous masses that likely represe nt fibroids. ADDITIONAL FINDINGS: None. SKELETAL SYSTEM: No significant abnormality. IMPRESSION: Severe left hydronephrosis and mild right hydronephrosis is likely secondary to the markedly enlarged uterus that likely contains multiple fibroids. A left UPJ obstruction is also a possible contributin g factor. Signer Name: Beto Nash MD Signed: 01/05/2019 2:38 PM Workstation Name: [id number]
[2019-01-05] MEDS: FERROUS SULFATE 325 MG TAB PO SCH ×2 (19:04→21:05)
[2019-01-05] MEDS: MORPHINE 2 MG/1 ML INJ IV PRN (21:05)
[2019-01-06] MEDS: MORPHINE 4 MG/1 ML INJ IV PRN (02:41)
--- NOTE | 2019-01-06 05:38 | Event Note ---
Date: 01/06/19 (feeling better post CT with contrast) Pt A&O X 3 Breast feeding VSS Incision D&I Will d/c later today. RX on chart
[2019-01-06] MEDS: oxyCODONE /ACETAMINOPHEN 5-325MG TAB PO PRN (06:13)
[2019-01-06] MEDS: MORPHINE 2 MG/1 ML INJ IV PRN (06:27)
[2019-01-06] MEDS: FERROUS SULFATE 325 MG TAB PO SCH (10:17)
[2019-01-06] MEDS: IBUPROFEN 800 MG TAB PO PRN (10:17)
[2019-01-06 13:25] VITALS: BP 138/79
== END 2019-01-06 14:09 | disposition home or self-care (01) | DRG 787 ==
LOC: APU 11:37 → OB 18:42
PROVIDERS: ADMIT Obstetrics & Gynecology; ATTEND Obstetrics & Gynecology
PROC: 10D00Z1 Extraction of Products of Conception, Low, Open Approach (ICD-10-PCS; principal; 2019-01-03)
PROC: 3E0234Z Introduction of Serum, Toxoid and Vaccine into Muscle, Percutaneous Approach (ICD-10-PCS; 2019-01-04)
DX: O34.211 Maternal care for low transverse scar from previous cesarean delivery (principal); O10.92 Unspecified pre-existing hypertension complicating childbirth; O34.93 Maternal care for abnormality of pelvic organ, unspecified, third trimester; R19.00 Intra-abdominal and pelvic swelling, mass and lump, unspecified site; O99.02 Anemia complicating childbirth; D57.3 Sickle-cell trait; Z37.0 Single live birth; Z79.899 Other long term (current) drug therapy; Z3A.38 38 weeks gestation of pregnancy; Z23 Encounter for immunization
CPT/HCPCS: 36415; 74177; 80048; 85014; 85018; 85027; 86592; 86850; 86900; 86901; G0378; A6250; J0690; J1200; J1885; J2270; J2405; J2590; J2765; J3490; J7120; J7121; Q9967

== ENCOUNTER 2019-12-18 05:47 | Day surgery (SDC) | payer OTHER ==
[2019-12-18] MEDS ORDERED: MIDAZOLAM 2 MG/2 ML INJ IV NR (06:00)
[2019-12-18] MEDS ORDERED: LACTATED RINGERS 1,000 ML IV SCH (06:00)
[2019-12-18] MEDS ORDERED: BACTERIOSTATIC SODIUM CHLORIDE 0.9% 30 ML VIAL INFILTRATI ONE (06:28)
[2019-12-18] MEDS ORDERED: ceFAZolin/STERILE WATER 2 GM/20 ML SYRINGE IV NR (07:00)
[2019-12-18] MEDS ORDERED: LIDOCAINE MPF (2%) 20 MG/1 ML VIAL 5 ML ONE (07:13)
[2019-12-18] MEDS ORDERED: propofoL 200 MG/20 ML VIAL IV ONE (07:13)
[2019-12-18] MEDS ORDERED: HYDROmorphone 1 MG/1 ML INJ ONE (07:13)
[2019-12-18] MEDS ORDERED: ONDANSETRON 4 MG/2 ML INJ IV PRN (07:34)
[2019-12-18] MEDS ORDERED: fentaNYL 100 MCG/2 ML INJ IV PRN (07:34)
--- NOTE | 2019-12-18 07:34 | Anesthesia Day of Surgery ---
Anesthesia Day of Surgery - Day of Surgery Patient Examined: Yes Patient H&P Reviewed: Yes Patient is NPO: Yes
--- NOTE | 2019-12-18 07:34 | Anesthesia Consultation ---
Anesthesia Consult and Med Hx Date of service: 12/18/19 - Airway Anesthetic Teeth Evaluation: Good ROM Head & Neck: Adequate Mental/Hyoid Distance: Adequate Mallampati Class: Class I Intubation Access Assessment: Good - Pulmonary Exam CTA: Yes - Cardiac Exam Cardiac Exam: RRR - Pre-Operative Health Status ASA Pre-Surgery Classification: ASA1 Proposed Anesthetic Plan: General - Pulmonary Hx Smoking: No Hx Respiratory Symptoms: No Hx Sleep Apnea: No - Cardiovascular System Hx Hypertension: No Hx Heart Attack/AMI: No - Central Nervous System CVA: No - Gastrointestinal Hx Gastroesophageal Reflux Disease: No - Endocrine Hx Renal Disease: No (hydronephrosis) Hx Liver Disease: No Hx Insulin Dependent Diabetes: No Hx Non-Insulin Dependent Diabetes: No Hx Thyroid Disease: No - Other Systems Hx Obesity: No
[2019-12-18] MEDS ORDERED: IOHEXOL 300 MG/ML 100ML IR ONE (08:15)
[2019-12-18] MEDS ORDERED: WATER FOR IRRIG STERILE 2000 ML IR ONE (08:16)
[2019-12-18] MEDS ORDERED: KETOROLAC 30 MG/1 ML INJ ONE (08:45)
[2019-12-18] MEDS ORDERED: ONDANSETRON 4 MG/2 ML INJ ONE (08:45)
--- NOTE | 2019-12-18 08:58 | Short Stay Summary ---
Short Stay Documentation Date of service: 12/18/19 - History H&P: obtained from office - Allergies and Medications Current Medications: Allergies No Known Allergies Allergy (Verified 01/03/19 13:14) Home Medications Medication Instructions Recorded Confirmed Last Taken Type No Known Home Medications [No 12/13/19 12/13/19 Unknown History Reported Home Medications] Active Medications Cefazolin Sodium (Ancef/Sterile Water 2 Gm/20 Ml) 2 gm IV PREOP NR Stop: 12/18/19 16:00 Fentanyl (Sublimaze) 50 mcg IV Q5MIN PRN PRN Reason: Pain , Severe (7-10) Stop: 12/18/19 23:00 Lactated Ringer's (Lactated Ringers) 1,000 mls @ 100 mls/hr IV DIRECT HARPAL Stop: 12/18/19 23:59 Last Admin: 12/18/19 07:00 Dose: 100 mls/hr Documented by: Midazolam HCl (Versed) 2 mg IV PREOP NR Stop: 12/18/19 23:00 Last Admin: 12/18/19 07:32 Dose: 2 mg Documented by: Ondansetron HCl (Zofran) 4 mg IV ONCE PRN PRN Reason: Nausea And Vomiting Stop: 12/18/19 16:00 - Brief post op/procedure progress note Date of procedure: 12/18/19 Pre-op diagnosis: left hydronephrosis Post-op diagnosis: other (distal left stricture) Procedure: cysto, rpg, left ureteral dilation, ureteroscopy, stent with internal string Anesthesia: GETA Surgeon: PORSHA MAYES Condition: stable - Hospital course Hospital course: bactrim , norco, ultram on chart - Disposition Condition at discharge: Stable Disposition: DC-01 TO HOME OR SELFCARE Short Stay Discharge Plan Follow up with: PRIMARY CARE,MD [Primary Care Provider] - 7 Days
--- NOTE | 2019-12-18 09:26 | Operative Report ---
PREOPERATIVE DIAGNOSIS: Left hydronephrosis. POSTOPERATIVE DIAGNOSES: Left hydronephrosis, left dense distal ureteral stricture. PROCEDURE: Cystoscopy, bilateral retrograde pyelograms, left ureteral dilatation, left ureteroscopy, double-J stent placement (6-Kyrgyz 24 cm with an internal string). SURGEON: Wilmar Cannon MD ANESTHESIA: General. ESTIMATED BLOOD LOSS: Minimal. FLUIDS: Crystalloid. COMPLICATIONS: No complications. INDICATIONS: This patient is a 34-year-old female who presented to the office with left hydronephrosis on CT in December 2018. She had a previous , also has a history of fibroids with an IUD, occasional left flank pain. Repeat CT confirmed persistent left hydro and mild hydro on the right. She presents now for surgical intervention. She has no history of kidney stones. DESCRIPTION OF PROCEDURE: The patient was taken to the operative suite, placed in a supine position. After adequate general anesthesia, placed in a dorsal lithotomy position, prepped and draped in a sterile fashion. Pancystourethroscopy was performed with 22-Kyrgyz Storz cystoscope, no urethral abnormalities. Her bladder, no tumors or stones. Both ureteral orifices in normal position. Bilateral retrograde pyelograms were obtained with an 8-Kyrgyz [place]ill catheter and 8 mL of contrast. No filling defects on the right. She does have an extrarenal pelvis. It drains well on the left side. There is a distal narrowing and acute turn of the proximal ureter. Multiple attempts to place a 0.035 Glidewire was unsuccessful. A [place] curved open ureteral catheter was used to advance a 0.025 Glidewire, which then was allowed to advance an access sheath for dilation. A second wire was placed as well followed by rigid ureteroscopy up to the renal pelvis. No stones could be appreciated; however, it appeared to be a dense stricture in the distal ureter that was now opened. A 6-Kyrgyz 24 cm double-J stent with an internal string was left indwelling. We will leave for approximately 2 weeks and get it out in the office. She was extubated and taken to recovery room. She will go home on Bactrim, Ultram and [place]. JOB# [id number] [facility]
[2019-12-18 10:29] VITALS: BP 133/82
--- NOTE | 2019-12-18 13:02 | Post Anesthesia Evaluation ---
- Post Anesthesia Evaluation Patient Participated: Yes Airway Patent: Yes Stable Respiratory Function: Yes Nausea/Vomiting: No Temp > 96.8F: Yes Pain Manageable: Yes Adequeate Hydration: Yes Anesthesia Complications: No
--- NOTE | 2019-12-18 16:46 | Fluoroscopy Report ---
10 fluoroscopic images submitted Indication: Intraoperative localization Impression: 10 images of the abdomen were submitted for documentation purposes with radiology shonna nunez. Bilateral retrograde pyelograms were performed with left-sided ureteroscopy and stent placeme nt. Approximately 10 mL of Omnipaque 300 was utilized. Please refer to the operative note for comple te details. Fluoroscopic time: 1 minute and 1 second Signer Name: Rosalino Tan MD Signed: 12/18/2019 4:41 PM Workstation Name: [id number]
== END 2019-12-18 05:48 | disposition home or self-care (01) ==
LOC: OR 05:47
PROVIDERS: ATTEND Urology
DX: N13.1 Hydronephrosis with ureteral stricture, not elsewhere classified (principal); D57.3 Sickle-cell trait; Z98.891 History of uterine scar from previous surgery; Z98.890 Other specified postprocedural states; Z82.49 Family history of ischemic heart disease and other diseases of the circulatory system
CPT/HCPCS: 52332; 52344; 74420; 81025; A4217; C1726; C1758; C1769; C2617; J0690; J1170; J1885; J2250; J2405; J2704; J7120; Q9967